=== PATIENT | female | born 1975 | race African-American/Black ===

== ENCOUNTER 2016-09-29 11:52 | Emergency (ER) | payer SELFPAY ==
--- NOTE | 2016-09-29 11:57 | ER Document Report ---
ED Medical Screen (RME) - General Chief Complaint: Vaginal Discharge Stated Complaint: TOOTH PAIN Mode of Arrival: Ambulatory Information source: Patient Notes: pt c/o vaginal d/c for 2 days and dental pain for the past week. Pt denies . Pt also c/o low back pain. TRAVEL OUTSIDE OF THE [place] IN LAST 30 DAYS: No - Related Data Allergies/Adverse Reactions: No Known Allergies Allergy (Verified 09/29/16 11:55) Past Medical History - Past Medical History Cardiac Medical History: Denies: Hx Pulmonary Embolism Pulmonary Medical History: Reports: Hx Asthma Denies: Hx Bronchitis, Hx COPD, Hx Pneumonia, Hx Respiratory Failure, Hx Sleep Apnea, Hx Tuberculosis Endocrine Medical History: Denies: Hx Diabetes Mellitus Type 2 Renal/ Medical History: Denies: Hx End Stage Renal Disease, Hx Kidney Stones, Hx Peritoneal Dialysis Malignancy Medical History: Denies: Hx Lung Cancer GI Medical History: Denies: Hx Gastritis, Hx Gastroesophageal Reflux Disease Psychiatric Medical History: Reports: Hx Anxiety Past Surgical History: Reports: Hx Section - x1, Hx Tubal Ligation. Denies: Hx Appendectomy, Hx Bowel Surgery, Hx Cholecystectomy, Hx Coronary Artery Bypass Graft, Hx Gastric Bypass Surgery, Hx Herniorrhaphy, Hx Hysterectomy, Hx Mastectomy, Hx Pacemaker, Hx Tonsillectomy - Immunizations Hx Diphtheria, Pertussis, Tetanus Vaccination: Yes Physical Exam - General General appearance: Appears well, Alert In distress: None
[2016-09-29] MEDS ORDERED: AZITHROMYCIN 250 MG TABLET PO ONE (13:11)
[2016-09-29] MEDS ORDERED: LIDOCAINE 1% INJ-PF (10 MG/ML) 30 ML SDV INFIL ONE (13:11)
[2016-09-29] MEDS ORDERED: CEFTRIAXONE INJ 250 MG VIAL IM ONE (13:11)
[2016-09-29] MEDS ORDERED: IBUPROFEN 600 MG TABLET PO ONE (13:12)
[2016-09-29] MEDS ORDERED: ACETAMINOPHEN WITH CODEINE #3 TABLET PO ONE (13:12)
--- NOTE | 2016-09-29 13:18 | ER Document Report ---
ED GI/ - General Chief Complaint: Vaginal Discharge Stated Complaint: TOOTH PAIN Mode of Arrival: Ambulatory Notes: The patient is a 41-year-old female, past medical history tubal ligation, presents with 3 days of tooth pain and 2 days of vaginal discharge. She does not have a new partner. Denies difficulty swallowing, fevers, facial swelling, pelvic pain, abdominal pain or urinary symptoms. TRAVEL OUTSIDE OF THE [place] IN LAST 30 DAYS: No - Related Data Allergies/Adverse Reactions: No Known Allergies Allergy (Verified 09/29/16 11:55) Past Medical History - General Information source: Patient - Social History Smoking Status: Current Every Day Smoker Chew tobacco use (# tins/day): No Frequency of alcohol use: Social Drug Abuse: Marijuana Family History: DM, Hypertension Patient has suicidal ideation: No Patient has homicidal ideation: No - Past Medical History Cardiac Medical History: Denies: Hx Pulmonary Embolism Pulmonary Medical History: Reports: Hx Asthma Denies: Hx Bronchitis, Hx COPD, Hx Pneumonia, Hx Respiratory Failure, Hx Sleep Apnea, Hx Tuberculosis Endocrine Medical History: Denies: Hx Diabetes Mellitus Type 2 Renal/ Medical History: Denies: Hx End Stage Renal Disease, Hx Kidney Stones, Hx Peritoneal Dialysis Malignancy Medical History: Denies: Hx Lung Cancer GI Medical History: Denies: Hx Gastritis, Hx Gastroesophageal Reflux Disease Psychiatric Medical History: Reports: Hx Anxiety Past Surgical History: Reports: Hx Section - x1, Hx Tubal Ligation. Denies: Hx Appendectomy, Hx Bowel Surgery, Hx Cholecystectomy, Hx Coronary Artery Bypass Graft, Hx Gastric Bypass Surgery, Hx Herniorrhaphy, Hx Hysterectomy, Hx Mastectomy, Hx Pacemaker, Hx Tonsillectomy - Immunizations Hx Diphtheria, Pertussis, Tetanus Vaccination: Yes Review of Systems - Review of Systems Notes: REVIEW OF SYSTEMS: CONSTITUTIONAL: -fevers, -chills EENT: Denies eye, ear or throat pain or symptoms. Denies nasal or sinus congestion. +tooth pain CARDIOVASCULAR: Denies chest pain, syncope. RESPIRATORY: Denies cough, cold, or chest congestion. Denies shortness of breath, difficulty breathing, or wheezing. GASTROINTESTINAL: Denies abdominal pain. Denies nausea, vomiting, or diarrhea. Denies constipation. GENITOURINARY: Denies difficulty urinating, painful urination, burning, frequency, or blood in urine. MUSCULOSKELETAL: Denies neck or back pain or joint pain or swelling. SKIN: Denies rash or skin lesions. HEMATOLOGIC: Denies easy bruising or bleeding. LYMPHATIC: Denies swollen, enlarged glands. NEUROLOGICAL: Denies altered mental status or loss of consciousness. Denies headache. Denies weakness or paralysis or loss of use of either side. Denies problems with gait or speech. Denies sensory or motor loss. PSYCHIATRIC: Denies anxiety or stress or depression. ALL OTHER SYSTEMS REVIEWED AND NEGATIVE. Physical Exam - Vital signs Vitals: Temp Pulse Resp BP Pulse Ox 98.4 F 83 15 111/73 98 09/29/16 11:55 09/29/16 11:55 09/29/16 11:55 09/29/16 11:55 09/29/16 11:55 - Notes Notes: PHYSICAL EXAMINATION: GENERAL: Well-appearing, well-nourished and in no acute distress. HEAD: Atraumatic, normocephalic. EYES: Pupils equal round and reactive to light, extraocular movements intact, sclera anicteric, conjunctiva are normal. ENT: nares patent, oropharynx clear without exudates. Moist mucous membranes. Poor dentition, dental kristopher in right upper molar NECK: Normal range of motion, supple without lymphadenopathy LUNGS: Breath sounds clear to auscultation bilaterally and equal. No wheezes rales or rhonchi. HEART: Regular rate and rhythm without murmurs ABDOMEN: Soft, nontender, normoactive bowel sounds. No guarding, no rebound. No masses appreciated. : Nontender adnexa and uterus. Moderate amount of whitish discharge. No CMT. EXTREMITIES: Normal range of motion, no pitting or edema. No cyanosis. NEUROLOGICAL: Cranial nerves grossly intact. Normal speech, normal gait. Normal sensory, motor, and reflex exams. PSYCH: Normal mood, normal affect. SKIN: Warm, Dry, normal turgor, no rashes or lesions noted. Course - Re-evaluation Re-evalutation: Trichomonas and UTI on urinalysis. Patient would like to be treated for gonorrhea and chlamydia. Instructed patient to use protection for 2 weeks and to have her [facility]. Patient declines dental block. Instructed her that she must follow-up with the dental clinic for extraction of the tooth. Will begin penicillin, Motrin and Tylenol #3. - Vital Signs Vital signs: Temp Pulse Resp BP Pulse Ox 98.4 F 83 15 111/73 98 09/29/16 11:55 09/29/16 11:55 09/29/16 11:55 09/29/16 11:55 09/29/16 11:55 - Laboratory Laboratory results interpreted by me: 09/29/16 12:04 Urine Protein 30 H Urine Blood MODERATE H Ur Leukocyte Esterase LARGE H Discharge - Discharge Clinical Impression: Vaginal discharge, Trichomonal cervicitis UTI (urinary tract infection) Qualifiers: Urinary tract infection type: acute cystitis Hematuria presence: with hematuria Qualified Code(s): N30.01 - Acute cystitis with hematuria Condition: Good Disposition: HOME, SELF-CARE Additional Instructions: Take the full course of antibiotics. Follow-up with the dentist. Have your partner go to the [facility] for treatment. VAGINITIS: Your exam shows that you have vaginitis, a vaginal infection. The infection can be caused by a many different organisms, including trichomonas or Gardnerella. The usual symptoms are vaginal irritation and discharge. The treatment is usually antibiotics such as Flagyl. Laboratory tests can determine which germ is responsible. Use the medication as prescribed. Because this infection can be transmitted sexually, your sexual partner may need to be checked and treated also. If your physician has not discussed this with you, please check before resuming sexual relations. If a culture shows gonorrhea or chlamydia, the infection must be reported to the health department. Call the doctor if you develop pelvic pain, fever, or problems with urination, or if you don't improve as expected. VAGINOSIS, BACTERIAL: Your exam shows you have bacterial vaginosis. This condition is due to an overgrowth of bacteria in the vagina. Symptoms may include vaginal itching or pain, a smelly discharge, and sometimes burning with urination. Normally this is not transmitted by sexual contact. Vaginosis can be treated with oral or topical antibiotics. Metronidazole ( Flagyl) pills are usually effective. Topical vaginal creams include Cleocin and Metro-Gel. You should avoid sexual contact until your symptoms are all better. Call the doctor if you develop pelvic pain, fever, or problems with urination, or if you don't improve as expected. VAGINAL TRICHOMONAS INFECTION: Trichomoniasis is infection of the vagina or male genital tract with Trichomonas vaginalis. It can be asymptomatic or cause urethritis, vaginitis, or occasionally cystitis, epididymitis, or prostatitis. Diagnosis is by microscopic examination of vaginal or prostatic secretions or by urethral culture. Patients and sex partners are treated with metronidazole. T. vaginalis is a flagellated, sexually transmitted protozoan that more often infects women (about 20% of women of reproductive age) than men. Infection may be asymptomatic in either sex, but asymptomatic is the rule for men. In men, protozoa may persist for long periods in the tract without causing symptoms; thus, protozoa may be transmitted unwittingly to sex partners. Trichomoniasis may account for up to 5% of nongonococcal, nonchlamydial urethritis in men in some areas. Co-infection with gonorrhea and other sexually transmitted diseases (STDs) is common. In women, symptoms range from none to copious, yellow-green, frothy vaginal discharge with soreness of the vulva and perineum, dyspareunia, and dysuria. Asymptomatic infection may become symptomatic at any time as the vulva and perineum become inflamed and edema develops in the labia. The vaginal hart and surface of the cervix may have punctate, red "strawberry" spots. Urethritis and possibly cystitis may also occur. Men are usually asymptomatic; however, sometimes urethritis results in a discharge that may be transient, frothy, or purulent or that causes dysuria and frequency, usually early in the morning. Often, urethritis is mild and causes only minimal urethral irritation and occasional moisture at the urethral meatus , under the foreskin, or both. Epididymitis and prostatitis are rare complications. Trichomoniasis is suspected in women with vaginitis, in men with urethritis , and in their sex partners. Suspicion is high if symptoms persist after patients have been evaluated and treated for other infections such as gonorrhea and chlamydial, mycoplasmal, and ureaplasmal infections. In women, diagnosis is based on clinical criteria and in-office testing. The saline wet mount is examined microscopically as soon as possible to detect trichomonads.In men, microscopy of urine is insensitive, although occasionally organisms are visible in a first-voided morning specimen or a centrifuged specimen. Cultures of urine and urethral swabs are more sensitive. As with diagnosis of any STD, patients with trichomoniasis should be tested to exclude other common STDs such as gonorrhea and chlamydial infection. Metronidazole or tinidazole 2 g po in a single dose cures up to 95% of women if sex partners are treated simultaneously. Effectiveness of single-dose regimens in men is not as clear, so treatment is typically with metronidazole or tinidazole 500 mg bid for 5 to 7 days. Sex partners should be screened and treated for trichomoniasis and other STDs. If poor adherence to follow-up is likely, treatment can be initiated in sex partners of patients with documented trichomoniasis without confirming the diagnosis in the partner. ANTIBIOTIC THERAPY: You have been given an antibiotic prescription. It's important that you take all the medication, unless instructed otherwise by your physician. Failure to complete the entire course can result in relapse of your condition. Common side effects of antibiotics include nausea, intestinal cramping, or diarrhea. Women may develop vaginal yeast infections, and babies can get yeast (thrush) in the mouth following the use of antibiotics. Contact your physician if you develop significant side effects from this medication. Allergy to this antibiotic can result in hives, wheezing, faintness, or itching. If symptoms of allergy occur, stop the medication and call the doctor. CEPHALOSPORINS: An antibiotic of the cephalosporin class has been prescribed. This type of antibiotic covers a wide variety of infections, including those of the skin, lungs, middle ear, and urinary tract. This antibiotic is somewhat similar to the penicillin family. In rare cases , a person who is allergic to penicillin will also be allergic to this medication. If you have had a severe allergic reaction to penicillin, and have not taken this antibiotic since that time, notify your doctor. Antibiotics which cover many germs ("broad spectrum" antibiotics) are more likely to cause diarrhea or "yeast" infections. Women prone to vaginal yeast problems may suffer an attack after taking this antibiotic. In infants, oral thrush (white spots "stuck" on the cheek) or yeast diaper rash may result. See your doctor if these problems occur. Call the doctor at once if you develop hives, itching, shortness of breath , or lightheadedness. AZITHROMYCIN: Azithromycin (Zithromax) is a broad spectrum antibiotic in the same class as erythromycin. It can treat a variety of bacterial infections, but is most frequently used for respiratory infections. Azithromycin is extremely long-lasting. It accumulates in body tissues and continues to kill bacteria for many days. In order to improve absorption, Azithromycin should be taken at least one hour before or two hours after a meal. It does not have the same strong tendency to upset the stomach as erythromycin and is usually very well tolerated. Patients who have had a rash or other true allergic reactions to erythromycin should not take this medication. Call if you develop gastrointestinal distress, severe diarrhea, rash, hives, itching, or shortness of breath. METRONIDAZOLE: Metronidazole (Flagyl) has been prescribed. This medication is used to kill a type of bacteria called anaerobes, and protozoan parasites such as trichomonas and Giardia. Flagyl often causes a metallic taste in the mouth and mild nausea. Do not use alcohol in any form with Flagyl (including alcohol in medication elixirs). Flagyl interacts with alcohol to cause flushing, palpitations, headache, stomach cramps, and vomiting. Do not use Flagyl if you are taking Antabuse (disulfiram). Call the doctor at once if you develop rash, shortness of breath, itching, or lightheadedness. FOLLOW-UP CARE: If you have been referred to a physician for follow-up care, call the physician s office for an appointment as you were instructed or within the next two days. If you experience worsening or a significant change in your symptoms, notify the physician immediately or return to the Emergency Department at any time for re-evaluation. Prescriptions: Acetaminophen with Codeine [Tylenol #3 Tablet] 1 each PO Q6HP PRN #8 tablet PRN Reason: Metronidazole [Flagyl] 500 mg PO TID #21 tablet Penicillin V Potassium [Penicillin Vk 500 mg Tablet] 500 mg PO TID #21 tablet
[2016-09-29 13:34] LABS: APPEARANCE,URINE TURBID; BILIRUBIN,URINE NEGATIVE (NEGATIVE); GLUCOSE, URINE NEGATIVE (NEGATIVE); KETONES,URINE NEGATIVE (NEGATIVE); LEUKOCYTE ESTERASE,URINE LARGE (NEGATIVE); NITRITE,URINE NEGATIVE (NEGATIVE); PROTEIN,URINE 30 mg/dL (NEGATIVE); URINE SPECIFIC GRAVITY 1.027; UROBILINOGEN,URINE NEGATIVE mg/dL (<2.0)
[2016-09-29 13:54] VITALS: BP 113/69
[2016-09-29 14:50] LABS: CHLAM PCR NOT DETECTED (NOT DETECT)
== END 2016-09-29 13:53 | disposition home or self-care (01) ==
LOC: ER 11:52
DX: N30.01 Acute cystitis with hematuria (principal); A59.09 Other urogenital trichomoniasis; N89.8 Other specified noninflammatory disorders of vagina; F17.210 Nicotine dependence, cigarettes, uncomplicated; J45.909 Unspecified asthma, uncomplicated; Z98.51 Tubal ligation status
CPT/HCPCS: 99284; 96372; 87210; 81025; 81001; 87491; 87591; J3490; J0696

== ENCOUNTER 2017-04-16 21:33 | Emergency (ER) | payer OTHER ==
[2017-04-16] MEDS ORDERED: MORPHINE SULFATE 10 MG/ML INJ IV ONE (21:52)
[2017-04-16] MEDS ORDERED: NORMAL SALINE 1000 ML 1,000 ML IV PRN (21:52)
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
[2017-04-16 22:50] LABS: ABSOLUTE BASOPHILS # (AUTO) 0.1 10^3/uL (0.0-0.2); ABSOLUTE EOSINOPHILS # (AUTO) 0.1 10^3/uL (0.0-0.6); ABSOLUTE LYMPHOCYTES (AUTO) 2.6 10^3/uL (0.5-4.7); ABSOLUTE MONOCYTES (AUTO) 0.7 10^3/uL (0.1-1.4); ABSOLUTE NEUT (AUTO) 3.3 10^3/uL (1.7-8.2); BASOPHILS % (AUTO) 1.2 % (0-2); EOSINOPHILS % (AUTO) 0.9 % (0-6); HEMOGLOBIN 12.4 g/dL (12.0-15.5); HGB HCT DIFFERENCE 0.2; LYMPHOCYTES % (AUTO) 38.5 % (13-45); MEAN CORPUSCULAR HEMOGLOBIN 28.8 pg (27.0-33.4); MEAN CORPUSCULAR HGB CONC 33.4 g/dL (32.0-36.0); MEAN CORPUSCULAR VOLUME 86 fl (80-97); MONOCYTES % (AUTO) 10.4 % (3-13); RED CELL DISTRIBUTION WIDTH 13.4 % (11.5-14.0); WHITE BLOOD COUNT 6.7 10^3/uL (4.0-10.5)
[2017-04-16 23:10] LABS: ALANINE AMINOTRANSFERASE 84 U/L (9-52); ALBUMIN 3.7 g/dL (3.5-5.0); ALKALINE PHOSPHATASE 65 U/L (38-126); ANION GAP 12 (5-19); ASPARTATE AMINO TRANSFERASE 85 U/L (14-36); BILIRUBIN,DIRECT 0.3 mg/dL (0.0-0.4); BILIRUBIN,TOTAL 0.4 mg/dL (0.2-1.3); BLOOD UREA NITROGEN 10 mg/dL (7-20); CALCIUM 8.8 mg/dL (8.4-10.2); CARBON DIOXIDE 23 mmol/L (22-30); CHLORIDE 102 mmol/L (98-107); CREATININE RESULT 0.73 mg/dL (0.52-1.25); GLUCOSE 107 mg/dL (75-110); POTASSIUM 3.8 mmol/L (3.6-5.0); SODIUM 136.8 mmol/L (137-145); TOTAL PROTEIN 6.9 g/dL (6.3-8.2)
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
[2017-04-17] MEDS ORDERED: ONDANSETRON HCL INJ/PF 4 MG/2 ML SDV IV ONE ×2 (01:36→01:56)
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
[2017-04-17] MEDS ORDERED: ONDANSETRON HCL INJ/PF 4 MG/2 ML SDV ONE (01:57)
[2017-04-17] MEDS ORDERED: DIPH/PERTUSS(ACELL)/TETANUS VAC/PF 0.5 ML SYR (>=10YO) IM ONE (02:03)
[2017-04-17] MEDS ORDERED: OXYCODONE-ACETAMINOPHEN 5-325 MG TABLET PO ONE (02:03)
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
[2017-04-17 02:57] VITALS: BP 116/78
== END 2017-04-17 03:00 | disposition home or self-care (01) ==
LOC: ER 21:33
DX: S06.0X9A Concussion with loss of consciousness of unspecified duration, initial encounter (principal); S16.1XXA Strain of muscle, fascia and tendon at neck level, initial encounter; M54.2 Cervicalgia; M54.9 Dorsalgia, unspecified; R55 Syncope and collapse; V87.7XXA Person injured in collision between other specified motor vehicles (traffic), initial encounter
CPT/HCPCS: 99284; 96361; 90471; 96374; 96375; 36415; 85025; 80053; 73560; 70450; 71260; 72125; 74177; 90715; J2270; J2405; J7030

== ENCOUNTER 2017-04-21 15:57 | Emergency (ER) | payer OTHER ==
[2017-04-21 16:11] VITALS: BP 105/71
[2017-04-21] MEDS ORDERED: NORMAL SALINE 1000 ML 1,000 ML IV ONE (16:28)
[2017-04-21] MEDS ORDERED: MORPHINE SULFATE 10 MG/ML INJ IV ONE (16:29)
[2017-04-21 17:17] LABS: ABSOLUTE EOSINOPHILS # (AUTO) 0.1 10^3/uL (0.0-0.6); ABSOLUTE LYMPHOCYTES (AUTO) 1.7 10^3/uL (0.5-4.7); ABSOLUTE MONOCYTES (AUTO) 0.5 10^3/uL (0.1-1.4); EOSINOPHILS % (AUTO) 1.3 % (0-6); HEMATOCRIT 42.1 % (36.0-47.0); HEMOGLOBIN 14.1 g/dL (12.0-15.5); HGB HCT DIFFERENCE 0.2; MEAN CORPUSCULAR HEMOGLOBIN 28.9 pg (27.0-33.4); MEAN CORPUSCULAR HGB CONC 33.4 g/dL (32.0-36.0); MEAN CORPUSCULAR VOLUME 87 fl (80-97); MONOCYTES % (AUTO) 10.9 % (3-13); RED BLOOD COUNT 4.86 10^6/uL (3.72-5.28); RED CELL DISTRIBUTION WIDTH 13.4 % (11.5-14.0); SEGMENTED NEUTROPHILS % (AUTO) 46.8 % (42-78); WHITE BLOOD COUNT 4.4 10^3/uL (4.0-10.5)
[2017-04-21 17:31] LABS: ANION GAP 12 (5-19); BLOOD UREA NITROGEN 10 mg/dL (7-20); CALCIUM 9.6 mg/dL (8.4-10.2); CARBON DIOXIDE 25 mmol/L (22-30); CHLORIDE 103 mmol/L (98-107); CREATINE KINASE 74 U/L (30-135); CREATININE RESULT 0.83 mg/dL (0.52-1.25); GLUCOSE 88 mg/dL (75-110); POTASSIUM 4.1 mmol/L (3.6-5.0); SODIUM 140.1 mmol/L (137-145)
[2017-04-21] MEDS ORDERED: KETOROLAC TROMETHAMINE INJ/PF 30 MG/1 ML SDV IV ONE (17:34)
[2017-04-21 18:22] LABS: APPEARANCE,URINE CLEAR; BILIRUBIN,URINE NEGATIVE (NEGATIVE); GLUCOSE, URINE NEGATIVE (NEGATIVE); KETONES,URINE NEGATIVE (NEGATIVE); LEUKOCYTE ESTERASE,URINE NEGATIVE (NEGATIVE); NITRITE,URINE NEGATIVE (NEGATIVE); PROTEIN,URINE NEGATIVE (NEGATIVE); URINE SPECIFIC GRAVITY 1.005; UROBILINOGEN,URINE NEGATIVE mg/dL (<2.0)
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
== END 2017-04-21 18:58 | disposition home or self-care (01) ==
LOC: ER 15:57
DX: S13.4XXA Sprain of ligaments of cervical spine, initial encounter (principal); M54.2 Cervicalgia; R51 Headache; M54.9 Dorsalgia, unspecified; V49.50XA Passenger injured in collision with unspecified motor vehicles in traffic accident, initial encounter; F17.200 Nicotine dependence, unspecified, uncomplicated; J45.909 Unspecified asthma, uncomplicated
CPT/HCPCS: 99284; 96374; 96375; 36415; 82550; 85025; 81025; 80048; 81001; J1885; J2270; J7030

== ENCOUNTER 2017-06-17 15:13 | Emergency (ER) | payer OTHER ==
--- NOTE | 2017-06-17 15:57 | ER Document Report ---
ED GI/ - General Chief Complaint: Vaginal Discharge Stated Complaint: VAGINAL DISCHARGE Time Seen by Provider: 06/17/17 15:51 Notes: Patient is a 42-year-old female presents emergency department complaining of vaginal discharge in mild suprapubic pelvic pain. Patient states that she had sexual intercourse within the past 2 weeks with a new partner without a condom. She states that she does have a history of gonorrhea and that her symptoms today feel similar. Otherwise she states the last mental period was a week ago and that she is a previous tubal ligation. She is declining any urinalysis or test at this time. TRAVEL OUTSIDE OF THE [place] IN LAST 30 DAYS: No - Related Data Allergies/Adverse Reactions: No Known Allergies Allergy (Verified 06/17/17 15:15) Past Medical History - Social History Smoking Status: Current Every Day Smoker Family History: DM, Hypertension - Past Medical History Cardiac Medical History: Denies: Hx Pulmonary Embolism Pulmonary Medical History: Reports: Hx Asthma Denies: Hx Bronchitis, Hx COPD, Hx Pneumonia, Hx Respiratory Failure, Hx Sleep Apnea, Hx Tuberculosis Endocrine Medical History: Denies: Hx Diabetes Mellitus Type 2 Renal/ Medical History: Denies: Hx End Stage Renal Disease, Hx Kidney Stones, Hx Peritoneal Dialysis Malignancy Medical History: Denies: Hx Lung Cancer GI Medical History: Denies: Hx Gastritis, Hx Gastroesophageal Reflux Disease Psychiatric Medical History: Reports: Hx Anxiety Past Surgical History: Reports: Hx Section - x1, Hx Tubal Ligation. Denies: Hx Appendectomy, Hx Bowel Surgery, Hx Cholecystectomy, Hx Coronary Artery Bypass Graft, Hx Gastric Bypass Surgery, Hx Herniorrhaphy, Hx Hysterectomy, Hx Mastectomy, Hx Pacemaker, Hx Tonsillectomy - Immunizations Hx Diphtheria, Pertussis, Tetanus Vaccination: Yes Review of Systems - Review of Systems Constitutional: No symptoms reported Gastrointestinal: No symptoms reported Genitourinary: See HPI Female Genitourinary: See HPI -: Yes All other systems reviewed and negative Physical Exam - Vital signs Vitals: Temp Pulse Resp BP Pulse Ox 98.1 F 77 18 109/74 98 06/17/17 15:15 06/17/17 15:15 06/17/17 15:15 06/17/17 15:15 06/17/17 15:15 - Notes Notes: PHYSICAL EXAM GENERAL: Alert, interacts well. ABDOMEN: Soft, nondistended, nontender. No guarding, rebound, or rigidity.. Bowel sounds present in all 4 quadrants. FEMALE : Normal external exam. No evidence of lesions, lacerations, bruising or vesicles. Speculum exam normal cervix closed. There is evidence of yellow vaginal discharge with odor. Presence of inflamed cervix no evidence of lesions. No vaginal bleeding. Bimanual exam normal no cervical motion tenderness. No adnexal mass or adnexal tenderness. NEUROLOGICAL: Alert and oriented x4. Normal speech. PSYCH: Normal affect, normal mood. SKIN: Warm, dry, normal turgor. No rashes or lesions noted. Course - Re-evaluation Re-evalutation: 06/17/17 16:50 Patient is a 38-year-old female is hemodynamic stable, no distress afebrile. Presentation today is consistent with trichomonas based on wet mount. Patient requesting treatment for chlamydia and gonorrhea instead of waiting for the results. Patient educated on safe intercourse and to abstain from intercourse for approximately 1 week and have her partners tested. Patient agrees with plan. Stable for discharge home - Vital Signs Vital signs: Temp Pulse Resp BP Pulse Ox 98.6 F 67 18 112/68 98 06/17/17 18:20 06/17/17 18:20 06/17/17 15:15 06/17/17 18:20 06/17/17 18:20 Discharge - Discharge Clinical Impression: STD exposure Condition: Good Disposition: HOME, SELF-CARE Instructions: Trichomonas Infection ([facility]) Additional Instructions: -You have been treated for chlamydia, gonorrhea, and trichimonas -Please abstain from sexual intercourse for one week, have your partners treated and tested -I will call you if you test positive for chlamydia and/or gonorrhea
[2017-06-17] MEDS ORDERED: LIDOCAINE 1% INJ-PF (10 MG/ML) 30 ML SDV INJ ONE (16:49)
[2017-06-17] MEDS ORDERED: CEFTRIAXONE INJ 250 MG VIAL IM ONE (16:49)
[2017-06-17] MEDS ORDERED: AZITHROMYCIN 1 GM SUSP PACKET PO ONE (16:49)
[2017-06-17] MEDS ORDERED: METRONIDAZOLE 500 MG TABLET PO ONE (17:29)
[2017-06-17 18:21] VITALS: BP 112/68
[2017-06-17 18:54] LABS: CHLAM PCR NOT DETECTED (NOT DETECT)
== END 2017-06-17 18:20 | disposition home or self-care (01) ==
LOC: ER 15:13
DX: Z20.2 Contact with and (suspected) exposure to infections with a predominantly sexual mode of transmission (principal); N89.8 Other specified noninflammatory disorders of vagina; R10.2 Pelvic and perineal pain; F17.200 Nicotine dependence, unspecified, uncomplicated
CPT/HCPCS: 99283; 96372; 87210; 87491; 87591; J3490; Q0144; J0696

== ENCOUNTER 2017-08-04 11:35 | Emergency (ER) | payer SELFPAY ==
[2017-08-04 11:43] VITALS: BP 108/71
--- NOTE | 2017-08-04 12:02 | ER Document Report ---
HPI - HPI Patient complains to provider of: Vaginal irritation and discharge Onset: Last week Onset/Duration: Sudden Pain Level: 2 Context: 42-year-old female complaining of vaginal discharge that is yellow green with irritation. Her ex-fianc she suspects of infidelity because she developed STD about a month ago and was treated. Symptoms have recurred she is not sure if he sought treatment or not. No fever. No pelvic pain. No dysuria frequency or urgency. The previous 2 charts September and May indicated trichomonas with negative gonorrhea and chlamydia. Associated Symptoms: None Exacerbated by: Denies Relieved by: Denies Similar symptoms previously: Yes Recently seen / treated by doctor: No - ROS ROS below otherwise negative: Yes Systems Reviewed and Negative: Yes All other systems reviewed and negative - REPRODUCTIVE Reproductive: DENIES: : - DERM Skin Color: Normal Past Medical History - General Information source: Patient - Social History Smoking Status: Unknown if Ever Smoked Frequency of alcohol use: None Drug Abuse: None Lives with: Family Family History: DM, Hypertension Patient has suicidal ideation: No Patient has homicidal ideation: No Pulmonary Medical History: Reports: Hx Asthma Psychiatric Medical History: Reports: Hx Anxiety Past Surgical History: Reports: Hx Section - x1, Hx Tubal Ligation - Immunizations Hx Diphtheria, Pertussis, Tetanus Vaccination: Yes Vertical Provider Document - CONSTITUTIONAL Agree With Documented VS: Yes Exam Limitations: No Limitations - INFECTION CONTROL TRAVEL OUTSIDE OF THE [place] IN LAST 30 DAYS: No - HEENT HEENT: Normal ENT Exam - NECK Neck: Supple - RESPIRATORY Respiratory: Breath Sounds Normal, No Respiratory Distress O2 Sat by Pulse Oximetry: 98 - CARDIOVASCULAR Cardiovascular: Regular Rate, Regular Rhythm - GI/ABDOMEN Gastrointestinal: Abdomen Soft, Abdomen Non-Tender - REPRODUCTIVE Female Genitalia: Normal Inspection. negative: CMT Notes: Yellow vaginal discharge, frothy. - BACK Back: negative: CVA Tenderness-Right, CVA Tenderness-Left - MUSCULOSKELETAL/EXTREMETIES Musculoskeletal/Extremeties: DEMI PEÑA - NEURO Level of Consciousness: Awake, Alert - DERM Integumentary: Warm, Dry Course - Re-evaluation Re-evalutation: 08/04/17 12:27 Patient wants to be treated for gonorrhea and chlamydia pending the results which I agreed to. 08/04/17 12:53 Wet prep has bacteria and WBCs and no epis and no trichomonas. She will call me at 3:00 for the gonorrhea and chlamydia results. Her urinalysis has red blood cells, white blood cells and trace of bacteria the urine culture is pending I will treat her for urinary tract infection. - Vital Signs Vital signs: Temp Pulse Resp BP Pulse Ox 98.8 F 74 16 108/71 98 08/04/17 11:42 08/04/17 11:42 08/04/17 11:42 08/04/17 11:42 08/04/17 11:42 Discharge - Discharge Clinical Impression: Vaginal discharge Urinary tract infection Qualifiers: Urinary tract infection type: site unspecified Hematuria presence: with hematuria Qualified Code(s): N39.0 - Urinary tract infection, site not specified Condition: Good Disposition: HOME, SELF-CARE Instructions: Azithromycin ([facility]), Rocephin ([facility]), Trimethoprim-Sulfa ([facility]), Urinary Tract Infection ([facility]) Additional Instructions: drink plenty of fluids Call me at 3:00 [phone] for the STD culture results Urine culture is pending that will take 48 hours to be resulted Return to the emergency room if symptoms worsen Please complete the patient satisfaction survey if you get one, and return it.. If you do not receive a survey, then you can go to the [facility] website, [email or web address] and place your comments about your very good care. Thank you very much. It was a pleasure being your medical provider today. Prescriptions: Sulfamethoxazole/Trimethoprim [Sulfamethoxazole-Tmp Ds Tablet] 1 each PO BID # 14 tablet Forms: Return to Work
[2017-08-04] MEDS ORDERED: CEFTRIAXONE INJ 250 MG VIAL IM ONE (12:25)
[2017-08-04] MEDS ORDERED: LIDOCAINE 1% INJ-PF (10 MG/ML) 30 ML SDV INJ ONE (12:25)
[2017-08-04] MEDS ORDERED: ONDANSETRON 4 MG TAB.RAPDIS PO ONE (12:26)
[2017-08-04] MEDS ORDERED: AZITHROMYCIN 250 MG TABLET PO ONE (12:26)
[2017-08-04 12:36] LABS: APPEARANCE,URINE SLIGHTLY-CLOUDY; BILIRUBIN,URINE NEGATIVE (NEGATIVE); GLUCOSE, URINE NEGATIVE (NEGATIVE); KETONES,URINE NEGATIVE (NEGATIVE); LEUKOCYTE ESTERASE,URINE LARGE (NEGATIVE); NITRITE,URINE NEGATIVE (NEGATIVE); PROTEIN,URINE 30 mg/dL (NEGATIVE); URINE SPECIFIC GRAVITY 1.025; UROBILINOGEN,URINE NEGATIVE mg/dL (<2.0)
[2017-08-04] MEDS ORDERED: METRONIDAZOLE 500 MG TABLET PO ONE (12:48)
[2017-08-04 13:59] LABS: CHLAM PCR NOT DETECTED (NOT DETECT)
== END 2017-08-04 13:24 | disposition home or self-care (01) ==
LOC: ER 11:35
DX: N89.8 Other specified noninflammatory disorders of vagina (principal); N39.0 Urinary tract infection, site not specified; Z98.51 Tubal ligation status
CPT/HCPCS: 99283; 96372; 87210; 81025; 81001; 87491; 87591; S0119; J3490; J0696

== ENCOUNTER 2017-10-31 13:26 | Emergency (ER) | payer OTHER ==
[2017-10-31 13:43] VITALS: BP 105/74
[2017-10-31] MEDS ORDERED: DIAZEPAM INJ 10 MG/2 ML DISP.SYRIN IM ONE (14:48)
[2017-10-31] MEDS ORDERED: KETOROLAC TROMETHAMINE 60 MG/2 ML SDV IM ONE (14:48)
--- NOTE | 2017-10-31 14:49 | ER Document Report ---
ED General - General Chief Complaint: Chest Pain Stated Complaint: RIGHT HIP PAIN Time Seen by Provider: 10/31/17 14:48 Mode of Arrival: Ambulatory Information source: Patient Notes: 42-year-old female presents with complaints of right hip pain buttocks pain rating down her leg. Patient denies any back pain denies any loss of bowel or bladder function notes that the pain makes it painful for her to ambulate with that she is able to ambulate with no difficulty pt notes symptoms since august TRAVEL OUTSIDE OF THE [place] IN LAST 30 DAYS: No - HPI Onset: Other Onset/Duration: Persistent Quality of pain: Achy Severity: Mild Pain Level: 1 Associated symptoms: Other Exacerbated by: Movement, Walking Relieved by: Denies Similar symptoms previously: No Recently seen / treated by doctor: No - Related Data Allergies/Adverse Reactions: No Known Allergies Allergy (Verified 10/31/17 13:29) Past Medical History - Social History Smoking Status: Current Every Day Smoker Cigarette use (# per day): Yes Chew tobacco use (# tins/day): No Smoking Education Provided: No Frequency of alcohol use: Occasional Drug Abuse: Marijuana Family History: DM, Hypertension Patient has suicidal ideation: No Patient has homicidal ideation: No Pulmonary Medical History: Reports: Hx Asthma Denies: Hx Bronchitis, Hx COPD, Hx Pneumonia, Hx Tuberculosis Endocrine Medical History: Denies: Hx Diabetes Mellitus Type 2 Renal/ Medical History: Denies: Hx End Stage Renal Disease, Hx Kidney Stones, Hx Peritoneal Dialysis GI Medical History: Denies: Hx Gastroesophageal Reflux Disease Psychiatric Medical History: Reports: Hx Anxiety Past Surgical History: Reports: Hx Section - x1, Hx Tubal Ligation. Denies: Hx Appendectomy, Hx Bowel Surgery, Hx Cholecystectomy, Hx Hysterectomy, Hx Mastectomy, Hx Tonsillectomy - Immunizations Hx Diphtheria, Pertussis, Tetanus Vaccination: Yes Review of Systems - Review of Systems Notes: REVIEW OF SYSTEMS: CONSTITUTIONAL : Denies fever, chills, or sweats. Denies recent illness. EENT: Denies eye, ear, throat, or mouth pain or symptoms. Denies nasal or sinus congestion or discharge. Denies throat, tongue, or mouth swelling or difficulty swallowing. CARDIOVASCULAR: Denies chest pain. Denies palpitations or racing or irregular heart beat. Denies ankle edema. RESPIRATORY: Denies cough, cold, or chest congestion. Denies shortness of breath, difficulty breathing, or wheezing. GASTROINTESTINAL: Denies abdominal pain or distention. Denies nausea, vomiting , or diarrhea. Denies blood in vomitus, stools, or per rectum. Denies black, tarry stools. Denies constipation. GENITOURINARY: Denies difficulty urinating, painful urination, burning, frequency, blood in urine, or discharge. FEMALE GENITOURINARY: Denies vaginal bleeding, heavy or abnormal periods, irregular periods. Denies vaginal discharge or odor. MUSCULOSKELETAL: Admits to right hip pain SKIN: Denies rash, lesions or sores. HEMATOLOGIC : Denies easy bruising or bleeding. LYMPHATIC: Denies swollen, enlarged glands. NEUROLOGICAL: Denies confusion or altered mental status. Denies passing out or loss of consciousness. Denies dizziness or lightheadedness. Denies headache. Denies weakness or paralysis or loss of use of either side. Denies problems with gait or speech. Denies sensory loss, numbness, or tingling. Denies seizures. PSYCHIATRIC: Denies anxiety or stress. Denies depression, suicidal ideation, or homicidal ideation. ALL OTHER SYSTEMS REVIEWED AND NEGATIVE. PHYSICAL EXAMINATION: GENERAL: Well-appearing, well-nourished and in no acute distress. HEAD: Atraumatic, normocephalic. EYES: Pupils equal round and reactive to light, extraocular movements intact, conjunctiva are normal. ENT: Nares patent, oropharynx clear without exudates. Moist mucous membranes. NECK: Normal range of motion, supple without lymphadenopathy LUNGS: Breath sounds clear to auscultation bilaterally and equal. No wheezes rales or rhonchi. HEART: Regular rate and rhythm without murmurs ABDOMEN: Soft, nontender, nondistended abdomen. No guarding, no rebound. No masses appreciated. Female : deferred Musculoskeletal: pain with palpation of the right sciatic nerve reproducing exact pain, no back pain NEUROLOGICAL: Cranial nerves grossly intact. Normal speech, normal gait. Normal sensory, motor exams PSYCH: Normal mood, normal affect. SKIN: Warm, Dry, normal turgor, no rashes or lesions noted. Dictation was performed using [employer] recognition software Physical Exam - Vital signs Vitals: Temp Pulse Resp BP Pulse Ox 98.1 F 83 18 105/74 99 10/31/17 13:42 10/31/17 13:42 10/31/17 13:42 10/31/17 13:42 10/31/17 13:42 Course - Re-evaluation Re-evalutation: 10/31/17 14:52 pts pain is consistent with sciatica, pt is able to stand, no neuro deficits 10/31/17 16:45 Patient stated that Toradol and Valium did nothing for her pain, she was given a milligram of Dilaudid and her pain has since completely resolved I explained to her that I cannot discharge her home on Dilaudid but I will send her home on Neurontin for nerve pain. Patient states she does not know what that medication is that she will come right back, I explained I will gladly see her again if there are any other issues Patient encouraged to follow-up with us or her primary care physician if there are any worsening symptoms or any other concerns After performing a Medical Screening Examination, I estimate there is LOW risk for EXPANDING OR RUPTURED ABDOMINAL AORTIC ANEURYSM, CAUDA EQUINA SYNDROME, EPIDURAL MASS LESION, or HERNIATED DISK CAUSING SEVERE SPINAL STENOSIS, thus I consider the discharge disposition reasonable. I have reevaluated this patient multiple times and no significant life threatening changes are noted. The patient and I have discussed the diagnosis and risks, and we agree with discharging home and close follow-up. We also discussed returning to the Emergency Department immediately if new or worsening symptoms occur with the understanding that symptoms and presentations can change. We have discussed the symptoms which are most concerning (e.g., saddle anesthesia, urinary or bowel incontinence or retention, changing or worsening pain) that necessitate immediate return. - Vital Signs Vital signs: Temp Pulse Resp BP Pulse Ox 98.1 F 83 18 105/74 99 10/31/17 13:42 10/31/17 13:42 10/31/17 13:42 10/31/17 13:42 10/31/17 13:42 - Diagnostic Test Radiology reviewed: Image reviewed, Reports reviewed Discharge - Discharge Clinical Impression: Right hip pain, Neuropathy Sciatica Qualifiers: Laterality: right Qualified Code(s): M54.31 - Sciatica, right side Condition: Stable Disposition: HOME, SELF-CARE Instructions: Sciatica ([facility]) Additional Instructions: Follow up with your physician tomorrow for further care or return to the ED IMMEDIATELY if symptoms worsen or new concerns occur. If you cannot afford to follow up with your primary care physician a list of low cost clinics have been provided at the end of your discharge papers as well. Prescriptions: Gabapentin [Neurontin 300 mg Capsule] 300 mg PO Q8 #90 cap
[2017-10-31] MEDS ORDERED: HYDROMORPHONE HCL INJ/PF 2 MG/ML AMPULE IM ONE (15:49)
--- NOTE | 2017-10-31 16:35 | RADIOLOGY REPORT (SQ) ---
EXAM DESCRIPTION: HIP RIGHT AP/LATERAL COMPLETED DATE/TIME: 10/31/2017 4:19 pm REASON FOR STUDY: right hip pain COMPARISON: CT abdomen pelvis 04/16/2017 NUMBER OF VIEWS: Two views. TECHNIQUE: AP pelvis and additional frog-leg view of the right hip. LIMITATIONS: None. FINDINGS: MINERALIZATION: Normal. RIGHT HIP: No fracture or dislocation. No worrisome bone lesions. No significant right hip joint sp arian narrowing. Minimal bony spurring along the right acetabular rim. Minimal calcifications/ossific ation distal gluteal tendons at the greater trochanter LEFT HIP: No fracture or dislocation. No worrisome bone lesions. No significant hip joint space buzz rowing or bony spurring. PUBIS AND ISCHIUM: No fracture. PELVIS: No fracture. SACRUM: No fracture or dislocation. No worrisome bone lesions. LOWER LUMBAR SPINE: No fracture or dislocation. No worrisome bone lesions. No significant disc disea se. SOFT TISSUES: No findings. OTHER: No other significant finding. IMPRESSION: NO RADIOGRAPHIC EVIDENCE OF ACUTE INJURY. TECHNICAL DOCUMENTATION: JOB ID: [id number] [employer]- All Rights Reserved
--- NOTE | 2017-10-31 22:35 | EKG REPORT ---
SEVERITY:- BORDERLINE ECG - SINUS RHYTHM BORDERLINE T ABNORMALITIES, ANTERIOR LEADS : Confirmed by: Elif Palafox 31-Oct-2017 22:35:15
== END 2017-10-31 16:52 | disposition home or self-care (01) ==
LOC: ER 13:26
DX: M54.31 Sciatica, right side (principal); M25.551 Pain in right hip; J45.909 Unspecified asthma, uncomplicated; F17.200 Nicotine dependence, unspecified, uncomplicated
CPT/HCPCS: 93005; 99285; 96372; 96374; 73502; 93010; J3360; J1885; J1170

== ENCOUNTER 2018-01-16 14:42 | Emergency (ER) | payer OTHER ==
[2018-01-16] MEDS ORDERED: METOCLOPRAMIDE HCL INJ/PF 10 MG/2 ML SDV IV ONE (15:17)
[2018-01-16] MEDS ORDERED: DIPHENHYDRAMINE HCL 50 MG/ML VIAL IV ONE (15:17)
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
--- NOTE | 2018-01-16 17:03 | RADIOLOGY REPORT (SQ) ---
EXAM DESCRIPTION: CT HEAD WITHOUT COMPLETED DATE/TIME: 01/16/2018 4:55 pm REASON FOR STUDY: progressively worsening COOPER COMPARISON: 04/16/2017 TECHNIQUE: Axial images acquired through the brain without intravenous contrast. Images reviewed wi th bone, brain and subdural windows. Additional sagittal and coronal reconstructions were generated. Images stored on PACS. All CT scanners at this facility use dose modulation, iterative reconstruction, and/or weight based d osing when appropriate to reduce radiation dose to as low as reasonably achievable (ALARA). [facility]: Dose Right [facility]: CareDose [facility]: Dose Right [facility]: Teradose 4D [facility]: [employer] RADIATION DOSE: CT Rad equipment meets quality standard of care and radiation dose reduction techniq ues were employed. CTDIvol: 53.2 mGy. DLP: 1017 mGy-cm. mGy. LIMITATIONS: None. FINDINGS: VENTRICLES: Normal size and contour. CEREBRUM: No masses. No hemorrhage. No midline shift. No evidence for acute infarction. Normal gra y/white matter differentiation. No areas of low density in the white matter. CEREBELLUM: No masses. No hemorrhage. No alteration of density. No evidence for acute infarction. EXTRAAXIAL SPACES: No fluid collections. No masses. ORBITS AND GLOBE: No intra- or extraconal masses. Normal contour of globe without masses. CALVARIUM: No fracture. PARANASAL SINUSES: There is a somewhat frothy appearing air-fluid level in the right maxillary sinus. SOFT TISSUES: No mass or hematoma. OTHER: No other significant finding. IMPRESSION: Right maxillary sinus disease with no acute intracranial pathology. EVIDENCE OF ACUTE STROKE: NO. COMMENT: Quality ID # [id number]: Final reports with documentation of one or more dose reduction techniques (e.g., Automated exposure control, adjustment of the mA and/or kV according to patient size, use of iterative reconstruction technique) TECHNICAL DOCUMENTATION: JOB ID: [id number] [employer]- All Rights Reserved Reading location - IP/workstation name: [email or web address]
[2018-01-16 17:47] VITALS: BP 106/67
== END 2018-01-16 17:48 | disposition home or self-care (01) ==
LOC: ER 14:42
DX: J01.10 Acute frontal sinusitis, unspecified (principal); M25.551 Pain in right hip; G89.29 Other chronic pain; R51 Headache; M54.5 Low back pain; F17.200 Nicotine dependence, unspecified, uncomplicated; J45.909 Unspecified asthma, uncomplicated
CPT/HCPCS: 99284; 96374; 96375; 70450; J1200; J2765

== ENCOUNTER 2018-06-10 15:42 | Emergency (ER) | payer OTHER ==
[2018-06-10] MEDS ORDERED: OXYCODONE-ACETAMINOPHEN 5-325 MG TABLET PO ONE (17:10)
[2018-06-10] MEDS ORDERED: CEFTRIAXONE INJ 250 MG VIAL IM ONE (17:10)
[2018-06-10] MEDS ORDERED: AZITHROMYCIN 1 GM SUSP PACKET PO ONE (17:13)
[2018-06-10] MEDS ORDERED: LIDOCAINE 1% INJ-PF (10 MG/ML) 30 ML SDV INFIL ONE (17:13)
--- NOTE | 2018-06-10 17:22 | ER Document Report ---
HPI - HPI Patient complains to provider of: Vaginal discharge and toothache Onset: Last week Onset/Duration: Sudden Quality of pain: Other - Itchy Pain Level: 4 Context: Patient presents emergency department with complaints of vaginal discharge white slightly cream-colored and toothache for week. Patient reports she has bad teeth. Patient also reports she is sexually active last time 2 weeks ago with 1 partner no condom use. Denies fever vomiting diarrhea. Denies pain with void. Associated Symptoms: None Exacerbated by: Other - heat/cold Relieved by: Denies Similar symptoms previously: No Recently seen / treated by doctor: No - REPRODUCTIVE Reproductive: DENIES: : Past Medical History - General Information source: Patient Last Menstrual Period: irregular - Social History Smoking Status: Current Every Day Smoker Cigarette use (# per day): Yes Frequency of alcohol use: Occasional Drug Abuse: Marijuana Lives with: Friend - boyfriend Family History: DM, Hypertension Patient has suicidal ideation: No Patient has homicidal ideation: No Pulmonary Medical History: Reports: Hx Asthma Denies: Hx Bronchitis, Hx COPD, Hx Pneumonia, Hx Tuberculosis Endocrine Medical History: Denies: Hx Diabetes Mellitus Type 2 Renal/ Medical History: Denies: Hx End Stage Renal Disease, Hx Kidney Stones, Hx Peritoneal Dialysis GI Medical History: Denies: Hx Gastroesophageal Reflux Disease Psychiatric Medical History: Reports: Hx Anxiety Past Surgical History: Reports: Hx Section - x1, Hx Tubal Ligation. Denies: Hx Appendectomy, Hx Bowel Surgery, Hx Cholecystectomy, Hx Hysterectomy, Hx Mastectomy, Hx Tonsillectomy - Immunizations Hx Diphtheria, Pertussis, Tetanus Vaccination: Yes Vertical Provider Document - CONSTITUTIONAL Agree With Documented VS: Yes Exam Limitations: No Limitations General Appearance: WD/WN, No Apparent Distress - INFECTION CONTROL TRAVEL OUTSIDE OF THE [place] IN LAST 30 DAYS: No - HEENT HEENT: Atraumatic, Normocephalic Mouth Diagram: 1 - Seeing teeth widespread dental decay no erythema swelling or discharge opens mouth wide no ludwigs, clear voice - NECK Neck: Normal Inspection, Supple. negative: Lymphadenopathy-Left, Lymphadenopathy-Right - RESPIRATORY Respiratory: Breath Sounds Normal, No Respiratory Distress - CARDIOVASCULAR Cardiovascular: Regular Rate - MUSCULOSKELETAL/EXTREMETIES Musculoskeletal/Extremeties: DEMI PEÑA - NEURO Level of Consciousness: Awake, Alert, Appropriate Motor/Sensory: No Motor Deficit - DERM Integumentary: Warm, Dry Course - Re-evaluation Re-evalutation: 06/11/18 12:35 Patient was advised of 3 choices for STD treatment, first choice provide specimens and wait for results for 3 hours, second choice provide specimens and call the culture nurse for results to return for treatment and third choice provide specimens and be treated prophylactically. Patient chose option #3. Was instructed on the health department. Was also instructed to follow-up with dentist. She verbalized understanding to all instructions - Vital Signs Vital signs: Temp Pulse Resp BP Pulse Ox 98.5 F 60 18 101/64 100 06/10/18 16:13 06/10/18 16:13 06/10/18 16:13 06/10/18 16:13 06/10/18 16:13 Discharge - Discharge Clinical Impression: Pain, dental, Vaginal discharge, Possible exposure to STD Condition: Stable Disposition: HOME, SELF-CARE Instructions: Azithromycin ([facility]), Chlamydia ([facility]), Dentist, Gonorrhea ([facility]), [facility], Penicillin V K ([facility]), Rocephin ([facility]), Toothache ([facility]) Additional Instructions: *You have been evaluated for dental pain, POSSIBLE STD, VAGINAL DISCHARGE *Take medications as prescribed FOR YOUR TOOTHACHE *USE PROTECTION WHEN HAVING SEX *CALL THE CULTURE NURSE AT [phone] FOR RESULTS TOMORROW *Follow up with dentist *FOLLOW UP WITH A PRIMARY CARE FOR RECHECK WITHIN ONE WEEK *Return to ED for worsening condition, changes, needs Prescriptions: Penicillin V Potassium [Penicillin Vk 500 mg Tablet] 500 mg PO BID #20 tablet
[2018-06-10 17:44] LABS: APPEARANCE,URINE CLEAR; BILIRUBIN,URINE NEGATIVE (NEGATIVE); COLOR,URINE YELLOW; GLUCOSE, URINE NEGATIVE (NEGATIVE); KETONES,URINE NEGATIVE (NEGATIVE); LEUKOCYTE ESTERASE,URINE TRACE (NEGATIVE); NITRITE,URINE NEGATIVE (NEGATIVE); PROTEIN,URINE NEGATIVE (NEGATIVE); URINE SPECIFIC GRAVITY 1.031
[2018-06-10 17:50] VITALS: BP 109/83
[2018-06-10 20:46] LABS: CHLAM PCR NOT DETECTED (NOT DETECT); GON PCR NOT DETECTED (NOT DETECT)
== END 2018-06-10 17:46 | disposition home or self-care (01) ==
LOC: ER 15:42
DX: N89.8 Other specified noninflammatory disorders of vagina (principal); K02.9 Dental caries, unspecified; K08.89 Other specified disorders of teeth and supporting structures; Z20.2 Contact with and (suspected) exposure to infections with a predominantly sexual mode of transmission; F17.210 Nicotine dependence, cigarettes, uncomplicated; J45.909 Unspecified asthma, uncomplicated
CPT/HCPCS: 99283; 96372; 81001; 87491; 87591; J3490; Q0144; J0696

== ENCOUNTER 2018-07-02 14:16 | Emergency (ER) | payer OTHER ==
--- NOTE | 2018-07-02 15:58 | ER Document Report ---
ED Medical Screen (RME) - General Chief Complaint: Leg Swelling Stated Complaint: BILATERAL FOOT PAIN Time Seen by Provider: 07/02/18 15:29 TRAVEL OUTSIDE OF THE [place] 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 Nothing is seem to make this pain any better, sometimes walking seems to make it worse. She is never had anything like this in the past. Denies any fevers or chills, recent falls, strains pops or other symptoms. - Related Data Allergies/Adverse Reactions: No Known Allergies Allergy (Verified 07/02/18 15:24) Past Medical History - General Information source: Patient - Social History Chew tobacco use (# tins/day): No Frequency of alcohol use: Occasional Drug Abuse: Marijuana Pulmonary Medical History: Reports: Hx Asthma Denies: Hx Bronchitis, Hx COPD, Hx Pneumonia, Hx Tuberculosis Endocrine Medical History: Denies: Hx Diabetes Mellitus Type 2 Renal/ Medical History: Denies: Hx End Stage Renal Disease, Hx Kidney Stones, Hx Peritoneal Dialysis GI Medical History: Denies: Hx Gastroesophageal Reflux Disease Psychiatric Medical History: Reports: Hx Anxiety Past Surgical History: Reports: Hx Section - x1, Hx Tubal Ligation. Denies: Hx Appendectomy, Hx Bowel Surgery, Hx Cholecystectomy, Hx Hysterectomy, Hx Mastectomy, Hx Tonsillectomy - Immunizations Hx Diphtheria, Pertussis, Tetanus Vaccination: Yes Review of Systems - Review of Systems -: Yes All other systems reviewed and negative Physical Exam - Vital signs Vitals: Temp Pulse Resp BP Pulse Ox 99.2 F 98 16 116/75 97 07/02/18 14:22 07/02/18 14:22 07/02/18 14:22 07/02/18 14:22 07/02/18 14:22 - General General appearance: Appears well In distress: None - HEENT Head: Normocephalic Eyes: Normal Conjunctiva: Normal Cornea: Normal Extraocular movements intact: Yes Eyelashes: Normal Pupils: PERRL - Respiratory Respiratory status: No respiratory distress Chest status: Nontender Breath sounds: Normal Chest palpation: Normal - Cardiovascular Rhythm: Regular Heart sounds: Normal auscultation Murmur: No - Abdominal Inspection: Normal Distension: No distension Tenderness: Nontender - Back Back: Normal - Extremities General upper extremity: Normal inspection, Nontender, Normal ROM, Normal strength Ankle: Other - Bilaterally there is modest edema at the level of the ankle, the feet are symmetric, there is a strong DP pulse bilaterally in both feet. There is normal range of motion at the ankle, the knees, and the toes, there is tenderness in the superior aspect of the plantar fascia bilaterally and at the base of the first digit bilaterally, the patient has normal gait, is not ataxic and well-appearing. - Neurological Neuro grossly intact: Yes Cognition: Normal Orientation: AAOx4 Zackary Coma Scale Eye Opening: Spontaneous [place] Coma Scale Verbal: Oriented [place] Coma Scale Motor: Obeys Commands [place] Coma Scale Total: 15 Speech: Normal Cranial nerves: Normal Motor strength normal: LUE, RUE, LLE, RLE - Psychological Associated symptoms: Normal affect Course - Re-evaluation Re-evalutation: 07/02/18 20:36 This 43-year-old woman presents for evaluation of pain in the feet as well as slight level swelling. Patient likely has dependent edema as a result of having worked on her feet for approximately 12 hours/day. She is overall well-appearing, does have symptoms suggestive of possible underlying plantar fasciitis as she also wears poorly designed shoes at work. We did speak about the importance of obtaining likely insoles using symptomatic care to improve and then compressive hose to help with the swelling. She verbalized understanding at this, she was discharged with return precautions and instructions on how to best care for her feet. - Vital Signs Vital signs: Temp Pulse Resp BP Pulse Ox 97.8 F 80 17 113/78 98 07/02/18 15:57 07/02/18 15:57 07/02/18 15:57 07/02/18 15:57 07/02/18 15:57 Doctor's Discharge - Discharge Clinical Impression: Plantar fasciitis Edema Qualifiers: Edema type: unspecified Qualified Code(s): R60.9 - Edema, unspecified Condition: Good Disposition: HOME, SELF-CARE Instructions: Dependent Edema ([facility]), Plantar Fasciitis or Heel Spur ([facility]) Additional Instructions: Your seen today for your plantar fasciitis and edema. You should wear compression stockings. You should also make sure that you are trying to prop your feet up when you sleep at night. You should use ibuprofen 400 mg 3 times at least today for your pain. You should use a frozen water bottle to rub underneath your feet 10 minutes 2 times a day to help with the pain in your feet. You should get some insoles to help support your feet. Avoid flat shoes like flip-flops or boat shoes. Use a tennis ball or golf ball to rub under your feet to help loosen the tissue. Return for worsening fevers, chills, numbness or weakness in the feet. Prescriptions: Ibuprofen [Motrin 400 mg Tablet] 400 mg PO TID #40 tablet Forms: Parent Work Note
[2018-07-02 16:01] VITALS: BP 113/78
== END 2018-07-02 16:00 | disposition home or self-care (01) ==
LOC: ER 14:16
DX: M72.2 Plantar fascial fibromatosis (principal); R60.9 Edema, unspecified; Z98.51 Tubal ligation status
CPT/HCPCS: 99283

== ENCOUNTER 2018-08-29 11:58 | Emergency (ER) | payer SELFPAY ==
[2018-08-29 12:11] VITALS: BP 112/73
[2018-08-29] MEDS ORDERED: HYDROCODONE/ACETAMINOPHEN 5-325 MG TABLET PO ONE (12:42)
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
== END 2018-08-29 14:25 | disposition home or self-care (01) ==
LOC: ER 11:58
DX: S83.91XA Sprain of unspecified site of right knee, initial encounter (principal); M25.461 Effusion, right knee; F17.200 Nicotine dependence, unspecified, uncomplicated; X50.1XXA Overexertion from prolonged static or awkward postures, initial encounter
CPT/HCPCS: 99283; 73564; L1830

== ENCOUNTER 2018-10-15 00:59 | Emergency (ER) | payer SELFPAY ==
[2018-10-15] MEDS ORDERED: IBUPROFEN 600 MG TABLET PO ONE (03:28)
[2018-10-15] MEDS ORDERED: ACETAMINOPHEN 325 MG TABLET PO ONE (03:29)
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
[2018-10-15 05:18] VITALS: BP 101/69
[2018-10-15] MEDS ORDERED: HYDROCODONE/ACETAMINOPHEN 5-325 MG TABLET PO ONE (05:24)
[2018-10-15] MEDS ORDERED: OXYCODONE HCL IR 5 MG TABLET PO ONE (05:43)
== END 2018-10-15 06:33 | disposition home or self-care (01) ==
LOC: ER 00:59
DX: M25.561 Pain in right knee (principal); M25.461 Effusion, right knee; X50.1XXA Overexertion from prolonged static or awkward postures, initial encounter; F17.200 Nicotine dependence, unspecified, uncomplicated; J45.909 Unspecified asthma, uncomplicated
CPT/HCPCS: 99283

== ENCOUNTER 2018-12-28 17:22 | Emergency (ER) | payer SELFPAY ==
[2018-12-28] MEDS ORDERED: PSEUDOEPHEDRINE HCL 30 MG TABLET PO ONE (19:36)
[2018-12-28] MEDS ORDERED: IBUPROFEN 800 MG TABLET PO ONE (19:37)
--- NOTE | 2018-12-28 19:38 | ER Document Report ---
HPI - HPI Patient complains to provider of: Cold symptoms Time Seen by Provider: 12/28/18 19:32 Onset: Last week Onset/Duration: Persistent Quality of pain: Achy Pain Level: 4 Context: Patient presents complaining of cough, chills and voice hoarseness for the past week. Patient reports recent exposure to influenza. Patient reports diarrhea earlier in the week that since resolved. Patient missed work yesterday and is needing a note for her employer. Associated Symptoms: Nonproductive cough, Hoarseness, Rhinnorhea, Sore throat. denies: Chest pain, Chills, Fever, Headache Exacerbated by: Denies Relieved by: Denies Similar symptoms previously: Yes Recently seen / treated by doctor: No - ROS ROS below otherwise negative: Yes Systems Reviewed and Negative: Yes All other systems reviewed and negative - CONSTITUTIONAL Constitutional: DENIES: Fever - EENT EENT: REPORTS: Sore Throat, Nasal Drainage-Clear, Congestion - NEURO Neurology: DENIES: Headache - CARDIOVASCULAR Cardiovascular: DENIES: Chest pain - RESPIRATORY Respiratory: REPORTS: Coughing. DENIES: Trouble Breathing - GASTROINTESTINAL Gastrointestinal: DENIES: Abdominal Pain, Nausea, Patient vomiting - REPRODUCTIVE Reproductive: DENIES: : - DERM Skin Color: Normal Skin Problems: None Past Medical History - General Information source: Patient - Social History Smoking Status: Current Every Day Smoker Smoking Education Provided: Yes Frequency of alcohol use: Occasional Drug Abuse: None Occupation: food products sales representative Lives with: Family Family History: Reviewed & Not Pertinent, DM, Hypertension EENT Medical History: Reports: Other - Allergies Endocrine Medical History: Denies: Hx Diabetes Mellitus Type 2 Psychiatric Medical History: Reports: Hx Anxiety Past Surgical History: Reports: Hx Section - x1, Hx Tubal Ligation - Immunizations Immunizations up to date: Yes Hx Diphtheria, Pertussis, Tetanus Vaccination: Yes Vertical Provider Document - CONSTITUTIONAL Agree With Documented VS: Yes Exam Limitations: No Limitations General Appearance: WD/WN, No Apparent Distress - INFECTION CONTROL TRAVEL OUTSIDE OF THE [place] IN LAST 30 DAYS: No - HEENT HEENT: Atraumatic, Normocephalic, Pharyngeal Tenderness, Pharyngeal Erythema. negative: Pharyngeal Exudate, Tympanic Membrane Red, Tympanic Membrane Bulging Notes: clear rhinorrhea - NECK Neck: Normal Inspection, Supple. negative: Lymphadenopathy-Left, Lymphadenopathy-Right - RESPIRATORY Respiratory: No Respiratory Distress, Chest Non-Tender, Other - dry cough - CARDIOVASCULAR Cardiovascular: Regular Rate, Regular Rhythm, No Murmur. negative: Tachycardia - BACK Back: Normal Inspection - MUSCULOSKELETAL/EXTREMETIES Musculoskeletal/Extremeties: DEMI PEÑA - NEURO Level of Consciousness: Awake, Alert, Appropriate Motor/Sensory: No Motor Deficit - DERM Integumentary: Warm, Dry, No Rash Course - Re-evaluation Re-evalutation: 12/28/18 21:18 Respirations even unlabored, patient nontoxic in appearance. Chest x-ray reviewed, no concern for pneumonia or pneumothorax. We will treat symptomatical ly this time. Good return precautions discussed. Patient mildly hypotensive, patient's blood pressure typically runs 100/60s, as reviewed from patient's previous ER visits. Pt is not symptomatic with her blood pressure at this time. - Vital Signs Vital signs: Temp Pulse Resp BP Pulse Ox 98.1 F 87 16 101/51 L 100 12/28/18 17:33 12/28/18 17:33 12/28/18 17:33 12/28/18 17:33 12/28/18 17:33 - Laboratory Laboratory results interpreted by me: 12/28/18 21:18 Labs- Entire Visit 12/28/18 19:36 Group A Strep Rapid NEGATIVE - Diagnostic Test Radiology reviewed: Reports reviewed Discharge - Discharge Clinical Impression: Laryngitis Upper respiratory infection Qualifiers: URI type: unspecified URI Qualified Code(s): J06.9 - Acute upper respiratory infection, unspecified Condition: Stable Disposition: HOME, SELF-CARE Instructions: Acetaminophen, Corticosteroid Medication ([facility]), Laryngitis ([facility]), Upper Respiratory Illness ([facility]) Additional Instructions: Return immediately for any new or worsening symptoms Followup with your primary care provider, call tomorrow to make a followup appointment Throat culture is pending, we will call if you need any different treatment Take Zyrtec eunl-ryf-yheuder daily to help with congestion symptoms Prescriptions: Benzonatate [Tessalon Perle 100 mg Capsule] 100 mg PO Q8HP PRN #20 cap PRN Reason: Naproxen [Naprosyn 250 Nmg Tablet] 1 tab PO BID #14 tablet Forms: Return to Work Referrals: [facility] [Provider Group] - Follow up as needed
[2018-12-28 20:55] VITALS: BP 99/68
--- NOTE | 2018-12-28 20:59 | RADIOLOGY REPORT (SQ) ---
EXAM DESCRIPTION: XR CHEST 2 VIEWS COMPLETED DATE/TME: 12/28/2018 19:36 CLINICAL HISTORY: 43 years, Female, cough EXAM DESCRIPTION: CLINICAL HISTORY: cough COMPARISON: None. FINDINGS: Two views of the chest are submitted. Cardiac silhouette appears normal. No focal parenchymal or pleural disease. No acute bony abnormality. There is no significant pulmonary vascular engorgement. IMPRESSION: No evidence of acute cardiopulmonary disease.
[2018-12-28] MEDS ORDERED: DEXAMETHASONE 4 MG TABLET PO ONE (21:22)
== END 2018-12-28 22:07 | disposition home or self-care (01) ==
LOC: ER 17:22
DX: J06.9 Acute upper respiratory infection, unspecified (principal); J04.0 Acute laryngitis; R05 Cough; R49.0 Dysphonia; R19.7 Diarrhea, unspecified; J34.89 Other specified disorders of nose and nasal sinuses; J02.9 Acute pharyngitis, unspecified; R09.81 Nasal congestion; R09.89 Other specified symptoms and signs involving the circulatory and respiratory systems; F17.200 Nicotine dependence, unspecified, uncomplicated
CPT/HCPCS: 71046; 87070; 87880; 99283

== ENCOUNTER 2019-03-09 10:53 | Emergency (ER) | payer SELFPAY ==
[2019-03-09 11:16] VITALS: BP 102/73
[2019-03-09] MEDS ORDERED: IBUPROFEN 800 MG TABLET PO ONE (11:42)
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
== END 2019-03-09 12:58 | disposition home or self-care (01) ==
LOC: ER 10:53
DX: M25.561 Pain in right knee (principal); M25.571 Pain in right ankle and joints of right foot; Y04.2XXA Assault by strike against or bumped into by another person, initial encounter; J45.909 Unspecified asthma, uncomplicated; Z87.828 Personal history of other (healed) physical injury and trauma
CPT/HCPCS: 99284

== ENCOUNTER 2019-04-08 22:07 | Emergency (ER) | payer SELFPAY ==
[2019-04-08 22:26] VITALS: BP 113/81
== END 2019-04-09 00:15 | disposition left against medical advice (07) ==
LOC: ER 22:07
DX: Z53.21 Procedure and treatment not carried out due to patient leaving prior to being seen by health care provider (principal)

== ENCOUNTER 2019-04-09 20:08 | Emergency (ER) | payer SELFPAY ==
[2019-04-09] MEDS ORDERED: ASPIRIN 81 MG TABLET, CHEWABLE PO ONE (20:45)
--- NOTE | 2019-04-09 22:06 | RADIOLOGY REPORT (SQ) ---
EXAM DESCRIPTION: XR CHEST 2 VIEWS COMPLETED DATE/TME: 04/09/2019 00:00 CLINICAL HISTORY: 43 years, Female, chest pain COMPARISON: 12/28/2018 and 09/25/2015 NUMBER OF VIEWS: Two TECHNIQUE: One PA and one lateral view of the chest LIMITATIONS: None. FINDINGS: Cardiomediastinal silhouette is within normal limits. No lung consolidate. No pleural effusion. No pneumothorax. Osseous structures are without acute finding. IMPRESSION: No acute chest finding. copyright 2010 [employer]- All Rights Reserved
[2019-04-09] MEDS ORDERED: HYDROCODONE/ACETAMINOPHEN 5-325 MG TABLET PO ONE (22:21)
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
[2019-04-09 22:56] LABS: ABSOLUTE BASOPHILS # (AUTO) 0.1 10^3/uL (0.0-0.2); ABSOLUTE EOSINOPHILS # (AUTO) 0.1 10^3/uL (0.0-0.6); ABSOLUTE LYMPHOCYTES (AUTO) 2.7 10^3/uL (0.5-4.7); ABSOLUTE MONOCYTES (AUTO) 0.4 10^3/uL (0.1-1.4); ABSOLUTE NEUT (AUTO) 2.9 10^3/uL (1.7-8.2); BASOPHILS % (AUTO) 0.8 % (0-2); EOSINOPHILS % (AUTO) 1.2 % (0-6); HEMATOCRIT 38.3 % (36.0-47.0); HEMOGLOBIN 12.8 g/dL (12.0-15.5); MEAN CORPUSCULAR HEMOGLOBIN 27.4 pg (27.0-33.4); MEAN CORPUSCULAR HGB CONC 33.3 g/dL (32.0-36.0); MEAN CORPUSCULAR VOLUME 82 fl (80-97); MONOCYTES % (AUTO) 7.2 % (3-13); PLATELET COUNT 254 10^3/uL (150-450); RED BLOOD COUNT 4.67 10^6/uL (3.72-5.28); RED CELL DISTRIBUTION WIDTH 14.1 % (11.5-14.0); SEGMENTED NEUTROPHILS % (AUTO) 47.8 % (42-78); TOTAL CELLS COUNTED % (AUTO) 100 %; WHITE BLOOD COUNT 6.2 10^3/uL (4.0-10.5)
[2019-04-09 23:01] LABS: APPEARANCE,URINE CLEAR; BILIRUBIN,URINE NEGATIVE (NEGATIVE); COLOR,URINE YELLOW; GLUCOSE, URINE NEGATIVE (NEGATIVE); KETONES,URINE NEGATIVE (NEGATIVE); LEUKOCYTE ESTERASE,URINE NEGATIVE (NEGATIVE); NITRITE,URINE NEGATIVE (NEGATIVE); PROTEIN,URINE NEGATIVE (NEGATIVE); URINE SPECIFIC GRAVITY 1.016; UROBILINOGEN,URINE NEGATIVE mg/dL (<2.0)
[2019-04-09 23:12] LABS: ALANINE AMINOTRANSFERASE 28 U/L (9-52); ALBUMIN 4.2 g/dL (3.5-5.0); ALKALINE PHOSPHATASE 59 U/L (38-126); ANION GAP 7 (5-19); ASPARTATE AMINO TRANSFERASE 34 U/L (14-36); BILIRUBIN,DIRECT 0.2 mg/dL (0.0-0.4); BILIRUBIN,TOTAL 0.4 mg/dL (0.2-1.3); BLOOD UREA NITROGEN 8 mg/dL (7-20); CALCIUM 9.7 mg/dL (8.4-10.2); CARBON DIOXIDE 28 mmol/L (22-30); CHLORIDE 104 mmol/L (98-107); CREATINE KINASE 319 U/L (30-135); GLUCOSE 96 mg/dL (75-110); LIPASE 64.1 U/L (23-300); SODIUM 138.9 mmol/L (137-145); TOTAL PROTEIN 7.2 g/dL (6.3-8.2)
[2019-04-09 23:24] LABS: CREATINE KINASE MB 0.51 ng/mL (<4.55)
[2019-04-09 23:26] LABS: TROPONIN I < 0.012 ng/mL
--- NOTE | 2019-04-10 00:46 | RADIOLOGY REPORT (SQ) ---
EXAM DESCRIPTION: US ABDOMEN LIMITED COMPLETED DATE/TME: 04/09/2019 22:20 CLINICAL HISTORY: 43 years, Female, epig pain, nausea COMPARISON: None. TECHNIQUE: Perez scale sonography of the right upper quadrant abdomen. LIMITATIONS: None. FINDINGS: LIVER: Within normal limits morphology and with mildly diffuse increased echogenicity measuring 14.2 cm. GALLBLADDER: Within normal limits without gallbladder wall thickening pericholecystic fluid or cholelithiasis. Negative sonographic Giles's sign. BILIARY TRACT: No significant abnormalities noted. The common bile duct measures two mm. PANCREAS: Limited evaluation secondary to partial obscuration by overlying bowel gas otherwise within normal limits. KIDNEY: The RIGHT kidney is within normal limits of morphology and echogenicity measuring 10.6 cm. IMPRESSION: 1. No specific sonographic findings noted to suggest etiology of the patient's symptoms. 2. Mildly diffuse coarsened hepatic echogenicity raising the question of hepatic steatosis. copyright 2010 [employer]- All Rights Reserved
[2019-04-10] MEDS ORDERED: LIDOCAINE 5% (700 MG) TRANSDERMAL ADH..PATCH TP ONE (02:39)
[2019-04-10] MEDS ORDERED: LIDOCAINE 2% VISCOUS SOLN 20 ML UDCUP PO ONE (02:40)
[2019-04-10] MEDS ORDERED: MAG HYDROX/AL HYDROX/SIMETH SUSP 30 ML UDCUP PO ONE (02:40)
[2019-04-10] MEDS ORDERED: METOCLOPRAMIDE HCL ORAL SOLN 10 MG/10 ML UDCUP PO ONE (02:40)
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
[2019-04-10 03:12] LABS: T.VAGINALIS (WET MOUNT) NO TRICHOMONAS SEEN; WBCS (WET MOUNT) FEW WBCS SEEN; YEAST (WET MOUNT) NO YEAST SEEN
[2019-04-10 04:25] VITALS: BP 103/61
[2019-04-10 05:07] LABS: CHLAM PCR NOT DETECTED (NOT DETECT)
--- NOTE | 2019-04-10 08:25 | EKG REPORT ---
SEVERITY:- ABNORMAL ECG - SINUS RHYTHM NONSPECIFIC T ABNORMALITIES, ANTERIOR LEADS ,UNCHANGED FROM 10/31/17 EKG : Confirmed by: Abimael Morris MD 10-Apr-2019 08:24:33
== END 2019-04-10 04:25 | disposition home or self-care (01) ==
LOC: ER 20:08
DX: M54.5 Low back pain (principal); R10.13 Epigastric pain; N89.8 Other specified noninflammatory disorders of vagina; R07.9 Chest pain, unspecified; R53.1 Weakness; J45.909 Unspecified asthma, uncomplicated
CPT/HCPCS: 93005; 99285; 36415; 82553; 87210; 82550; 83690; 84703; 85025; 80053; 81001; 84484; 87491; 87591; 71046; 76705; 93010; J3490

== ENCOUNTER 2020-03-19 18:16 | Emergency (ER) | payer SELFPAY ==
[2020-03-19] MEDS ORDERED: ONDANSETRON HCL INJ/PF 4 MG/2 ML SDV IV ONE (18:55)
[2020-03-19] MEDS ORDERED: NORMAL SALINE 1000 ML 1,000 ML IV ONE (18:55)
--- NOTE | 2020-03-19 18:58 | ER Document Report ---
ED General - General Chief Complaint: Nausea/Vomiting Stated Complaint: NAUSEA/VOMITING/ABDOMINAL PAIN Notes: Patient is a 44-year-old -[place] female with a past medical history of asthma which is well controlled without medications who presents to the emergen cy department with a chief complaint of nausea, vomiting and upset stomach that began around 2 AM. The patient states that she ate food late that night the night before around 11 or 12:00 at night. Reports that she had ham and mashed potatoes that were left over. She woke at 2 AM feeling nauseous, went to the bathroom and vomited 2 times. States the vomitus contained the undigested food products she ate that night previously. She states since that time she has not vomited anymore. Had no diarrhea. Admits the upset stomach is improved but still has some mild discomfort in the epigastrium. She reports just feeling generally weak since that time. She is a current everyday smoker, admits to occasional marijuana use and states that she drinks 224 ounce beers per day. She did have 1 beer last night prior to dinner. She presents with a backpack full of "my snacks". TRAVEL OUTSIDE OF THE [place] IN LAST 30 DAYS: No - Related Data Allergies/Adverse Reactions: No Known Allergies Allergy (Verified 08/29/18 12:00) Past Medical History - Social History Smoking Status: Current Every Day Smoker Family History: Reviewed & Not Pertinent, DM, Hypertension Pulmonary Medical History: Reports: Hx Asthma Denies: Hx Bronchitis, Hx COPD, Hx Pneumonia, Hx Tuberculosis Endocrine Medical History: Denies: Hx Diabetes Mellitus Type 2 Renal/ Medical History: Denies: Hx End Stage Renal Disease, Hx Kidney Stones, Hx Peritoneal Dialysis GI Medical History: Denies: Hx Gastroesophageal Reflux Disease Psychiatric Medical History: Reports: Hx Anxiety Past Surgical History: Reports: Hx Section - x1, Hx Tubal Ligation. Denies: Hx Appendectomy, Hx Bowel Surgery, Hx Cholecystectomy, Hx Hysterectomy, Hx Mastectomy, Hx Tonsillectomy - Immunizations Immunizations up to date: Yes Hx Diphtheria, Pertussis, Tetanus Vaccination: Yes Review of Systems - Review of Systems Gastrointestinal: Abdominal pain, Nausea, Vomiting -: Yes All other systems reviewed and negative Physical Exam - Vital signs Vitals: Temp Pulse Resp BP Pulse Ox 98.6 F 88 16 116/78 99 03/19/20 18:41 03/19/20 18:41 03/19/20 18:41 03/19/20 18:41 03/19/20 18:41 - General General appearance: Appears well, Alert In distress: None - HEENT Head: Normocephalic, Atraumatic Eyes: Normal Conjunctiva: Normal Extraocular movements intact: Yes Eyelashes: Normal Pupils: PERRL Mouth/Lips: Normal Mucous membranes: Dry Pharynx: Normal Neck: Normal - Respiratory Respiratory status: No respiratory distress Chest status: Nontender Breath sounds: Normal Chest palpation: Normal - Cardiovascular Rhythm: Regular Heart sounds: Normal auscultation - Abdominal Inspection: Normal Distension: No distension Bowel sounds: Normal Tenderness: Nontender Organomegaly: No organomegaly - Extremities General upper extremity: Normal inspection, Nontender, Normal color, Normal ROM, Normal temperature General lower extremity: Normal inspection, Nontender, Normal color, Normal ROM, Normal temperature, Normal weight bearing. No: Rachel's sign - Neurological Neuro grossly intact: Yes Cognition: Normal Orientation: AAOx4 [place] Coma Scale Eye Opening: Spontaneous [place] Coma Scale Verbal: Oriented [place] Coma Scale Motor: Obeys Commands [place] Coma Scale Total: 15 Speech: Normal Motor strength normal: LUE, RUE, LLE, RLE Sensory: Normal - Psychological Associated symptoms: Normal affect, Normal mood - Skin Skin Temperature: Warm Skin Moisture: Dry Skin Color: Normal Course - Re-evaluation Re-evalutation: 03/19/20 21:30 Patient is resting comfortably in the room. Her work-up is unremarkable. She has had no episode of nausea or vomiting here. She is watching TV comfortably in the room. Suspect a transient process. Will send home with Aminah in the event any nausea returns. Instructed on dietary precautions. Encouraged to push clear fluids as tolerated. Counseled her regarding the importance of outpatient follow-up and advised that she return here or any ER immediately with any new, persistent or worsening symptoms. She verbalized understood and agreed. - Vital Signs Vital signs: Temp Pulse Resp BP Pulse Ox 98.2 F 71 16 102/75 99 03/19/20 21:21 03/19/20 21:21 03/19/20 21:21 03/19/20 21:21 03/19/20 21:21 - Laboratory Result Diagrams: 03/19/20 19:15 03/19/20 19:15 Laboratory results interpreted by me: 03/19/20 03/19/20 03/19/20 19:15 19:15 20:53 RDW 14.8 H Sodium 136.5 L Urine Blood MODERATE H Discharge - Discharge Clinical Impression: Dyspepsia Nausea and vomiting Qualifiers: Vomiting type: associated with bulimia nervosa Qualified Code(s): F50.2 - Bulimia nervosa Condition: Stable Disposition: HOME, SELF-CARE Instructions: Antinausea Medication ([facility]), Vomiting ([facility]) Additional Instructions: Follow-up with your regular doctor in 2 to 3 days for reevaluation. Return here or any ER immediately with any new, persistent or worsening symptoms.
[2020-03-19 19:37] LABS: ABSOLUTE BASOPHILS # (AUTO) 0.1 10^3/uL (0.0-0.2); ABSOLUTE EOSINOPHILS # (AUTO) 0.1 10^3/uL (0.0-0.6); ABSOLUTE LYMPHOCYTES (AUTO) 2.9 10^3/uL (0.5-4.7); ABSOLUTE MONOCYTES (AUTO) 0.4 10^3/uL (0.1-1.4); ABSOLUTE NEUT (AUTO) 3.4 10^3/uL (1.7-8.2); BASOPHILS % (AUTO) 1.4 % (0-2); EOSINOPHILS % (AUTO) 1.6 % (0-6); HEMATOCRIT 38.2 % (36.0-47.0); HEMOGLOBIN 12.7 g/dL (12.0-15.5); LYMPHOCYTES % (AUTO) 42.2 % (13-45); MEAN CORPUSCULAR HEMOGLOBIN 27.8 pg (27.0-33.4); MEAN CORPUSCULAR HGB CONC 33.3 g/dL (32.0-36.0); MEAN CORPUSCULAR VOLUME 84 fl (80-97); MONOCYTES % (AUTO) 5.9 % (3-13); PLATELET COUNT 311 10^3/uL (150-450); RED BLOOD COUNT 4.57 10^6/uL (3.72-5.28); RED CELL DISTRIBUTION WIDTH 14.8 % (11.5-14.0); SEGMENTED NEUTROPHILS % (AUTO) 48.9 % (42-78); TOTAL CELLS COUNTED % (AUTO) 100 %
[2020-03-19 19:57] LABS: ALBUMIN 4.4 g/dL (3.5-5.0); ALKALINE PHOSPHATASE 73 U/L (38-126); ANION GAP 7 (5-19); ASPARTATE AMINO TRANSFERASE 32 U/L (14-36); BILIRUBIN,TOTAL 0.4 mg/dL (0.2-1.3); BLOOD UREA NITROGEN 15 mg/dL (7-20); CALCIUM 9.7 mg/dL (8.4-10.2); CARBON DIOXIDE 26 mmol/L (22-30); CHLORIDE 104 mmol/L (98-107); GLUCOSE 98 mg/dL (75-110); POTASSIUM 4.1 mmol/L (3.6-5.0); TOTAL PROTEIN 7.9 g/dL (6.3-8.2)
[2020-03-19 21:18] LABS: APPEARANCE,URINE CLEAR; BILIRUBIN,URINE NEGATIVE (NEGATIVE); COLOR,URINE YELLOW; GLUCOSE, URINE NEGATIVE (NEGATIVE); KETONES,URINE NEGATIVE (NEGATIVE); PROTEIN,URINE NEGATIVE (NEGATIVE); URINE SPECIFIC GRAVITY 1.026; UROBILINOGEN,URINE NEGATIVE mg/dL (<2.0)
[2020-03-19 21:21] VITALS: BP 102/75
[2020-03-19] MEDS ORDERED: ONDANSETRON ODT 4 MG TAB (6 TAB/ER DISP) PO PRN (21:31)
== END 2020-03-19 21:44 | disposition home or self-care (01) ==
LOC: ER 18:16
DX: R10.13 Epigastric pain (principal); F50.2 Bulimia nervosa; F17.200 Nicotine dependence, unspecified, uncomplicated; J45.909 Unspecified asthma, uncomplicated
CPT/HCPCS: 99283; 96361; 96374; 36415; 83690; 84703; 85025; 80053; 81001; J2405; J7030

== ENCOUNTER 2020-04-20 14:16 | Emergency (ER) | payer SELFPAY ==
[2020-04-20] MEDS ORDERED: PREDNISONE 20 MG TABLET PO ONE (16:33)
[2020-04-20] MEDS ORDERED: IPRATROPIUM/ALBUTEROL 0.5-2.5 MG/3 ML AMPUL NEB ONE (16:34)
[2020-04-20 16:36] LABS: ABSOLUTE EOSINOPHILS # (AUTO) 0.1 10^3/uL (0.0-0.6); ABSOLUTE LYMPHOCYTES (AUTO) 1.9 10^3/uL (0.5-4.7); ABSOLUTE MONOCYTES (AUTO) 0.4 10^3/uL (0.1-1.4); ABSOLUTE NEUT (AUTO) 2.8 10^3/uL (1.7-8.2); BASOPHILS % (AUTO) 0.9 % (0-2); EOSINOPHILS % (AUTO) 1.1 % (0-6); HEMATOCRIT 38.1 % (36.0-47.0); HEMOGLOBIN 12.7 g/dL (12.0-15.5); LYMPHOCYTES % (AUTO) 37.2 % (13-45); MEAN CORPUSCULAR HEMOGLOBIN 27.6 pg (27.0-33.4); MEAN CORPUSCULAR HGB CONC 33.3 g/dL (32.0-36.0); MEAN CORPUSCULAR VOLUME 83 fl (80-97); MONOCYTES % (AUTO) 7.2 % (3-13); PLATELET COUNT 292 10^3/uL (150-450); RED CELL DISTRIBUTION WIDTH 14.6 % (11.5-14.0); SEGMENTED NEUTROPHILS % (AUTO) 53.6 % (42-78); TOTAL CELLS COUNTED % (AUTO) 100 %; WHITE BLOOD COUNT 5.2 10^3/uL (4.0-10.5)
--- NOTE | 2020-04-20 16:43 | ER Document Report ---
Entered by GARTH GALINDO SCRIBE 04/20/20 [id number] Acting as scribe for:ANNE MARIE JOHNSON MD ED Respiratory Problem - General Chief Complaint: Cough Stated Complaint: COUGH,SHORT OF BREATH Time Seen by Provider: 04/20/20 16:15 Mode of Arrival: Ambulatory Information source: Patient Notes: This 44-year-old female patient with asthma presents to the emergency department today with complaints of a cough with associated shortness of breath. Patient also has a hoarse squeaky voice which she states began on 04/15/20. Patient states she had an old inhaler at home which she used and it did help. She does not have a good inhaler to use at this time. TRAVEL OUTSIDE OF THE [place] IN LAST 30 DAYS: No - Related Data Allergies/Adverse Reactions: No Known Allergies Allergy (Verified 08/29/18 12:00) Past Medical History - General Information source: Patient - Social History Smoking Status: Current Some Day Smoker Cigarette use (# per day): Yes Frequency of alcohol use: Social Drug Abuse: Marijuana Lives with: Family Family History: Reviewed & Not Pertinent, DM, Hypertension Patient has homicidal ideation: No Pulmonary Medical History: Reports: Hx Asthma Psychiatric Medical History: Reports: Hx Anxiety Past Surgical History: Reports: Hx Section - x1, Hx Tubal Ligation - Immunizations Immunizations up to date: Yes Hx Diphtheria, Pertussis, Tetanus Vaccination: Yes Review of Systems - Review of Systems Constitutional: Fever - subjective EENT: No symptoms reported Cardiovascular: No symptoms reported Respiratory: See HPI, Cough, Short of breath Gastrointestinal: No symptoms reported Genitourinary: No symptoms reported Female Genitourinary: No symptoms reported Musculoskeletal: No symptoms reported Skin: No symptoms reported Hematologic/Lymphatic: No symptoms reported Neurological/Psychological: No symptoms reported -: Yes All other systems reviewed and negative Physical Exam - Vital signs Vitals: Temp Pulse Resp BP Pulse Ox 98.2 F 62 20 118/80 99 04/20/20 15:42 04/20/20 15:42 04/20/20 15:42 04/20/20 15:42 04/20/20 15:42 - Notes Notes: Physical Exam: General: Alert, appears well. HEENT: Normocephalic. Atraumatic. PERRL. Extraocular movements intact. Oropharynx clear. Hoarse squeaky voice. Neck: Supple. Non-tender. Respiratory: No respiratory distress. Faint expiratory wheezing bilaterally. Cardiovascular: Regular rate and rhythm. Abdominal: Normal Inspection. Non-tender. No distension. Normal Bowel Sounds. Back: No gross abnormalities. Extremities: Moves all four extremities. Upper extremities: Normal inspection. Normal ROM. Lower extremities: Normal inspection. No edema. Normal ROM. Neurological: Normal cognition. AAOx4. Normal speech. Psychological: Normal affect. Normal Mood. Skin: Warm. Dry. Normal color. Course - Re-evaluation Re-evalutation: 04/20/20 17:37 The patient was evaluated during the global COVID-19 pandemic and that diagnosis was suspected/considered upon their initial presentation. Their evaluation, treatment and testing was consistent with current guidelines for patients who present with complaints or symptoms that may be related to COVID-19. - Vital Signs Vital signs: Temp Pulse Resp BP Pulse Ox 98.2 F 62 20 118/80 99 04/20/20 15:42 04/20/20 15:42 04/20/20 15:42 04/20/20 15:42 04/20/20 15:42 - Laboratory Result Diagrams: 04/20/20 16:20 04/20/20 16:20 Laboratory results interpreted by me: 04/20/20 04/20/20 16:20 16:20 RDW 14.6 H Sodium 135.6 L - Diagnostic Test Radiology reviewed: Image reviewed, Reports reviewed - Chest x-ray does not show acute processes. - EKG Interpretation by [place] EKG shows normal: Sinus rhythm, [place], Intervals, QRS Complexes. abnormal: ST-T Waves - Borderline anterior T abnormalities Rate: Normal - 61 Rhythm: NSR When compared to previous EKG there are: No significant change Discharge - Discharge Clinical Impression: Viral upper respiratory tract infection with cough, Encounter for laboratory testing for COVID-19 virus Exacerbation of asthma Qualifiers: Asthma severity: mild Asthma persistence: persistent Qualified Code(s): J45.31 - Mild persistent asthma with (acute) exacerbation Condition: Stable Disposition: HOME, SELF-CARE Instructions: COVID-19 Guidance for Persons Under Investigation Additional Instructions: Urinary Tract Infection Your evaluation indicates that you have a urinary tract infection. This is due to germs growing in the bladder. This is a common problem. This infection usually responds quickly to antibiotics. Your antibiotic should be taken exactly as prescribed. Drink plenty of fluids -- three to four quarts a day. Occasionally, a bladder anesthetic will be prescribed to help stop the feeling of urgency until the antibiotic has a chance to clear the infection. This may cause your urine to be dark orange. Certain urine infections require a culture. If the doctor obtained a culture, the results will be back in two days. You should call to see if a change in treatment is needed. A repeat urinalysis after you finish treatment is often recommended. The physician will let you know if further testing is required. Call the doctor if you develop fever, chills, flank pain, inability to urinate, or blood in the urine. Start the prednisone as prescribed tomorrow. You are given today's dose here in the emergency room. Use the albuterol inhaler 2 puffs every 2-4 hours as needed for wheezing. Drink plenty of fluids and get plenty of rest. You were tested for COVID-19 virus infection today due to your symptoms and exposure history. The results usually come back in about 4 to 5 days. You should self quarantine at home until you have received results of the test. Follow-up with your primary care provider if not improving. RETURN TO THE EMERGENCY ROOM IF ANY NEW OR WORSENING SYMPTOMS. Prescriptions: Prednisone [Deltasone 10 mg Tablet] 10 mg PO ASDIR PRN #21 tablet PRN Reason: Albuterol Sulfate [Proair Hfa Inhalation Aerosol 8.5 gm Mdi] 2 puff IH ASDIR PRN #1 mdi PRN Reason: I personally performed the services described in the documentation, reviewed and edited the documentation which was dictated to the scribe in my presence, and it accurately records my words and actions.
--- NOTE | 2020-04-20 16:55 | RADIOLOGY REPORT (SQ) ---
EXAM DESCRIPTION: CHEST SINGLE VIEW IMAGES COMPLETED DATE/TIME: 04/20/2020 4:46 pm REASON FOR STUDY: COUGH, SOB COMPARISON: 04/09/2019 EXAM PARAMETERS: NUMBER OF VIEWS: One view. TECHNIQUE: Single frontal radiographic view of the chest acquired. RADIATION DOSE: NA LIMITATIONS: None. FINDINGS: LUNGS AND PLEURA: No opacities, masses or pneumothorax. No pleural effusion. MEDIASTINUM AND HILAR STRUCTURES: No masses. Contour normal. HEART AND VASCULAR STRUCTURES: Heart normal in size. Normal vasculature. BONES: No acute findings. HARDWARE: None in the chest. OTHER: No other significant finding. IMPRESSION: No focal consolidation or other evidence of acute intrathoracic process. TECHNICAL DOCUMENTATION: JOB ID: [id number] 2010 [email or web address]- All Rights Reserved Reading location - IP/workstation name: [email or web address]
[2020-04-20 17:14] LABS: ALBUMIN 4.2 g/dL (3.5-5.0); ALKALINE PHOSPHATASE 56 U/L (38-126); ANION GAP 8 (5-19); ASPARTATE AMINO TRANSFERASE 29 U/L (14-36); BILIRUBIN,DIRECT 0.1 mg/dL (0.0-0.4); BILIRUBIN,TOTAL 0.5 mg/dL (0.2-1.3); BLOOD UREA NITROGEN 13 mg/dL (7-20); CALCIUM 9.7 mg/dL (8.4-10.2); CARBON DIOXIDE 28 mmol/L (22-30); CHLORIDE 100 mmol/L (98-107); GLUCOSE 95 mg/dL (75-110); POTASSIUM 3.9 mmol/L (3.6-5.0); TOTAL PROTEIN 7.7 g/dL (6.3-8.2)
[2020-04-20] MEDS ORDERED: ALBUTEROL SULFATE 0.083% NEB 2.5 MG/3 ML AMPUL NEB ONE (17:37)
[2020-04-20] MEDS ORDERED: ALBUTEROL SULFATE HFA (90 MCG/PUFF) 8 GM MDI (1 MDI/ER DISP) IH ONE (18:07)
[2020-04-20 18:37] VITALS: BP 117/74
--- NOTE | 2020-04-20 20:05 | EKG REPORT ---
SEVERITY:- BORDERLINE ECG - SINUS RHYTHM BORDERLINE T ABNORMALITIES, ANTERIOR LEADS : Confirmed by: Kalee Reaves MD 20-Apr-2020 20:04:59
== END 2020-04-20 18:36 | disposition home or self-care (01) ==
LOC: ER 14:16
DX: J06.9 Acute upper respiratory infection, unspecified (principal); B97.89 Other viral agents as the cause of diseases classified elsewhere; J45.31 Mild persistent asthma with (acute) exacerbation; R05 Cough; R06.02 Shortness of breath; F17.210 Nicotine dependence, cigarettes, uncomplicated; F12.10 Cannabis abuse, uncomplicated; R49.0 Dysphonia; Z79.899 Other long term (current) drug therapy; Z20.828 Contact with and (suspected) exposure to other viral communicable diseases
CPT/HCPCS: 93005; 94640 ×2; 99284; 36415; 87070; 87880; 85025; 87635; 80053; 71045; 93010; J7512; C9803

== ENCOUNTER 2020-10-02 07:36 | Emergency (ER) | payer SELFPAY ==
[2020-10-02 09:16] LABS: ABSOLUTE LYMPHOCYTES (AUTO) 1.8 10^3/uL (0.5-4.7); ABSOLUTE MONOCYTES (AUTO) 0.4 10^3/uL (0.1-1.4); ABSOLUTE NEUT (AUTO) 0.9 10^3/uL (1.7-8.2); BASOPHILS % (AUTO) 0.4 % (0-2); EOSINOPHILS % (AUTO) 0.9 % (0-6); HEMATOCRIT 35.7 % (36.0-47.0); HEMOGLOBIN 11.8 g/dL (12.0-15.5); LYMPHOCYTES % (AUTO) 57.2 % (13-45); MEAN CORPUSCULAR HEMOGLOBIN 27.2 pg (27.0-33.4); MEAN CORPUSCULAR VOLUME 83 fl (80-97); MONOCYTES % (AUTO) 11.9 % (3-13); PLATELET COUNT 312 10^3/uL (150-450); RED BLOOD COUNT 4.32 10^6/uL (3.72-5.28); RED CELL DISTRIBUTION WIDTH 14.7 % (11.5-14.0); SEGMENTED NEUTROPHILS % (AUTO) 29.6 % (42-78); TOTAL CELLS COUNTED % (AUTO) 100 %; WHITE BLOOD COUNT 3.1 10^3/uL (4.0-10.5)
--- NOTE | 2020-10-02 09:20 | RADIOLOGY REPORT (SQ) ---
EXAM DESCRIPTION: CHEST SINGLE VIEW IMAGES COMPLETED DATE/TIME: 10/02/2020 8:59 am REASON FOR STUDY: sobr COMPARISON: 04/20/2020 EXAM PARAMETERS: NUMBER OF VIEWS: One view. TECHNIQUE: Single frontal radiographic view of the chest acquired. RADIATION DOSE: NA LIMITATIONS: None. FINDINGS: LUNGS AND PLEURA: No opacities, masses or pneumothorax. No pleural effusion. MEDIASTINUM AND HILAR STRUCTURES: No masses. Contour normal. HEART AND VASCULAR STRUCTURES: Heart normal in size. Normal vasculature. BONES: No acute findings. HARDWARE: None in the chest. OTHER: No other significant finding. IMPRESSION: NO ACUTE RADIOGRAPHIC FINDING IN THE CHEST. TECHNICAL DOCUMENTATION: JOB ID: [id number] 2010 [employer]- All Rights Reserved Reading location - IP/workstation name: [email or web address]
[2020-10-02 09:27] LABS: APPEARANCE,URINE CLEAR; BILIRUBIN,URINE NEGATIVE (NEGATIVE); COLOR,URINE YELLOW; GLUCOSE, URINE NEGATIVE (NEGATIVE); KETONES,URINE NEGATIVE (NEGATIVE); LEUKOCYTE ESTERASE,URINE NEGATIVE (NEGATIVE); NITRITE,URINE NEGATIVE (NEGATIVE); PROTEIN,URINE NEGATIVE (NEGATIVE); URINE SPECIFIC GRAVITY 1.014; UROBILINOGEN,URINE NEGATIVE mg/dL (<2.0)
--- NOTE | 2020-10-02 10:18 | ER Document Report ---
Entered by YAIR HOPKINS SCRIBE 10/02/20 0842 Acting as scribe for:ANGELA POWELL MD ED General - General Stated Complaint: HEADACHE BODY ACHE LOSS OF TASTE AND SMELL Time Seen by Provider: 10/02/20 08:12 Mode of Arrival: Ambulatory Information source: Patient Notes: This 45 year old female patient with a history of asthma presents to the ED today with complaints of intermittent shortness of breath for the past x3 days. Patient states that she has been out of her inhaler and that she quit smoking x2 months ago. She reports associated chills, headache, loss of taste/smell, post nasal drip, and abdominal cramping off and on for the past x2 days. She mentions that a family member who recently visited from [place] over the holidays tested positive for COVID. Denies fever, sore throat, nausea/vomiting/diarrhea, or . She states that she skipped her period in July but had a cycle in August. TRAVEL OUTSIDE OF THE [place] IN LAST 30 DAYS: No - Related Data Allergies/Adverse Reactions: No Known Allergies Allergy (Verified 10/02/20 08:21) Past Medical History - Social History Smoking Status: Former Smoker - quit x2 months ago Cigarette use (# per day): No Chew tobacco use (# tins/day): No Smoking Education Provided: No Family History: Reviewed & Not Pertinent, DM, Hypertension Pulmonary Medical History: Reports: Hx Asthma Psychiatric Medical History: Reports: Hx Anxiety Past Surgical History: Reports: Hx Section - x1, Hx Tubal Ligation - Immunizations Immunizations up to date: Yes Hx Diphtheria, Pertussis, Tetanus Vaccination: Yes Review of Systems - Review of Systems Constitutional: See HPI, Chills. denies: Fever EENT: See HPI, Other - Loss of taste/smell. denies: Throat pain Cardiovascular: No symptoms reported Respiratory: See HPI, Short of breath Gastrointestinal: See HPI. denies: Diarrhea, Nausea, Vomiting Genitourinary: No symptoms reported Female Genitourinary: See HPI Musculoskeletal: No symptoms reported Skin: No symptoms reported Hematologic/Lymphatic: No symptoms reported Neurological/Psychological: See HPI, Headaches -: Yes All other systems reviewed and negative Physical Exam - Vital signs Vitals: Resp Pulse Ox 19 98 10/02/20 08:06 10/02/20 08:06 Interpretation: Normal - General General appearance: Appears well, Alert - Speaking in full sentences without difficulty In distress: None - HEENT Head: Normocephalic, Atraumatic Eyes: Normal Extraocular movements intact: Yes Pupils: PERRL Pharynx: Normal. No: Erythema Neck: Normal, Supple. No: Lymphadenopathy - Respiratory Respiratory status: No respiratory distress, Other - 99-100% O2 sats on room air Chest status: Nontender Breath sounds: Normal. No: Wheezing Chest palpation: Normal - Cardiovascular Rhythm: Regular Heart sounds: Normal auscultation Murmur: No - Abdominal Inspection: Normal Distension: No distension Bowel sounds: Normal Tenderness: Nontender Organomegaly: No organomegaly - Back Back: Normal, Nontender - Extremities General upper extremity: Normal inspection General lower extremity: Normal inspection. No: Edema - Neurological Neuro grossly intact: Yes Orientation: AAOx4 [place] Coma Scale Eye Opening: Spontaneous [place] Coma Scale Verbal: Oriented [place] Coma Scale Motor: Obeys Commands [place] Coma Scale Total: 15 - Psychological Associated symptoms: Normal affect, Normal mood - Skin Skin Temperature: Warm Skin Moisture: Dry Skin Color: Normal Course - Re-evaluation Re-evalutation: 10/02/20 10:13 Patient resting comfortably not showing any signs of distress. - Vital Signs Vital signs: Temp Pulse Resp BP Pulse Ox 98.4 F 70 15 110/87 H 100 10/02/20 08:12 10/02/20 08:12 10/02/20 08:31 10/02/20 08:31 10/02/20 08:31 10/02/20 10:14 Stable pulse ox 100% afebrile. - Laboratory Results Result Diagrams: 10/02/20 08:30 10/02/20 08:30 Laboratory Results Interpreted: 10/02/20 10/02/20 08:30 09:00 WBC 3.1 L Hgb 11.8 L Hct 35.7 L RDW 14.7 H Lymph % (Auto) 57.2 H Absolute Neuts (auto) 0.9 L Seg Neutrophils % 29.6 L Urine Blood SMALL H Laboratories did not show any critical lab values at this time patient's white blood cell count is 3.1. Critical Laboratory Results Reviewed: No Critical Results - Radiology Results Radiology Results Interpreted: 10/02/20 10:07 Chest X-Ray 10/02/20 08:37 IMPRESSION: NO ACUTE RADIOGRAPHIC FINDING IN THE CHEST. 10/02/20 10:15 Chest x-ray shows no acute process. Critical Radiology Results Reviewed: No Critical Results Discharge - Discharge Clinical Impression: Suspected COVID-19 virus infection, Asthma Condition: Stable Disposition: HOME, SELF-CARE Instructions: COVID-19 Guidance for Persons Under Investigation Additional Instructions: Today you are tested for COVID-19. Your test results most likely will take 2 to 3 days to realize those test results. Meanwhile self quarantine until further instructions based on your test results. Increase fluids take Tylenol ibuprofen as needed for fever or chills begin using your albuterol inhaler as needed. Follow-up with your primary care physician as needed. Prescriptions: Albuterol Sulfate [Albuterol Sulfate Hfa] 8.5 gm IH QID PRN 30 Days #1 [email or web address] PRN Reason: For Wheezing Forms: Return to Work I personally performed the services described in the documentation, reviewed and edited the documentation which was dictated to the scribe in my presence, and it accurately records my words and actions.
[2020-10-02 10:37] VITALS: BP 110/77
[2020-10-02 10:53] LABS: ALBUMIN 3.9 g/dL (3.5-5.0); ALKALINE PHOSPHATASE 50 U/L (38-126); ASPARTATE AMINO TRANSFERASE 32 U/L (14-36); BILIRUBIN,DIRECT 0.2 mg/dL (0.0-0.4); BILIRUBIN,TOTAL 0.4 mg/dL (0.2-1.3); BLOOD UREA NITROGEN 8 mg/dL (7-20); CALCIUM 8.7 mg/dL (8.4-10.2); CARBON DIOXIDE 29 mmol/L (22-30); CHLORIDE 104 mmol/L (98-107); GLUCOSE 89 mg/dL (75-110); POTASSIUM 4.3 mmol/L (3.6-5.0); TOTAL PROTEIN 6.9 g/dL (6.3-8.2)
[2020-10-02 10:54] LABS: ANION GAP 4 (5-19)
== END 2020-10-02 10:20 | disposition home or self-care (01) ==
LOC: ER 07:36
DX: U07.1 COVID-19 (principal); J45.909 Unspecified asthma, uncomplicated; Z87.891 Personal history of nicotine dependence
CPT/HCPCS: 99284; 36415; 84703; 85025; 87635; 80053; 81001; 71045; C9803